=== PATIENT | male | born 1960 | race Hispanic/Latino ===

== ENCOUNTER 2017-01-15 08:48 | Emergency (ER) | payer OTHER ==
[2017-01-15 08:48] VITALS: BMI 28.5
[2017-01-15 08:57] VITALS: TEMP 97.3
--- NOTE | 2017-01-15 09:17 | C.PDOC ---
History Of Present Illness 56 yo male, c/o of right shoulder and right neck pain s/p trip and fall 3 days ago. no head injury no loc. no other complaints Time Seen by Provider: 01/15/17 09:08 Chief Complaint (Nursing): Upper Extremity Problem/Injury Past Medical History Reviewed: Historical Data, Nursing Documentation, Vital Signs Vital Signs: Last Vital Signs Temp 97.3 F L 01/15/17 08:54 Pulse 71 01/15/17 09:42 Resp 18 01/15/17 09:42 BP 132/75 01/15/17 09:42 Pulse Ox 97 01/15/17 09:42 - Medical History PMH: Depression, Gastritis, Hiatal Hernia, Hyperlipidemia, Post Traumatic Stress Disorder Denies: Diabetes, Hepatitis, HIV, HTN, Seizures, Sexually Transmitted Disease Family History: States: Unknown Family Hx, [place], CAD, Diabetes - Social History Hx Alcohol Use: No Hx Substance Use: No - Immunization History Hx Tetanus Toxoid Vaccination: No Hx Influenza Vaccination: No Hx Pneumococcal Vaccination: No Review Of Systems Except As Marked, All Systems Reviewed And Found Negative. Musculoskeletal: Positive for: Neck Pain, Shoulder Pain (right) Physical Exam - Physical Exam Appears: Well, No Acute Distress, Other (sleeping in nad) Skin: Normal Color, Warm, Dry Eye(s): bilateral: Normal Inspection, PERRL, EOMI Nose: Normal Throat: Normal Neck: Normal, Normal ROM, No Decreased ROM, No Midline Cervical Tenderness, Paracervical Tenderness, Supple Cardiovascular: Rhythm Regular Respiratory: Normal Breath Sounds Gastrointestinal/Abdominal: Normal Exam Back: Normal Inspection Extremity: Normal ROM, Tenderness (mild right), No Deformity, No Swelling ED Course And Treatment O2 Sat by Pulse Oximetry: 98 Medical Decision Making Medical Decision Making: nexus neg pending imagng 100: imaging neg. pt advised outpt fu and return precautions Disposition - Disposition Referrals: [facility] [Outside] [facility] [Outside] Luis Rose MD [Non-Staff] - Disposition: HOME/ ROUTINE Disposition Time: 09:34 Condition: STABLE Additional Instructions: please follow up with your doctor/specialist. return to er with worsening symptoms or concerns. Prescriptions: Naproxen [Naprosyn] 500 mg PO BID PRN #14 tablet PRN Reason: Pain, Mild (1-3) Instructions: Shoulder Sprain (ED), Cervical Sprain (ED) Forms: [facility] (Malagasy) - Clinical Impression Clinical Impression: Shoulder injury, Neck pain
[2017-01-15 09:42] VITALS: BP 132/75; PULSE 71; RESP 18
--- NOTE | 2017-01-15 11:52 | RAD ---
PROCEDURE: Radiographs of the Right Shoulder HISTORY: Trauma COMPARISON: No prior. FINDINGS: BONES: Normal. No fracture. JOINTS: Mild degenerative osteoarthritis right acromioclavicular joint. SOFT TISSUES: Normal. OTHER FINDINGS: None. IMPRESSION: No evidence of acute displaced fracture nor dislocation. Mild DJD right acromioclavicular joint.
[2017-01-15 12:58] VITALS: O2SAT 98
== END 2017-01-15 09:44 | disposition home or self-care (01) ==
LOC: C.ER 08:48
DX: M54.2 Cervicalgia (principal); S49.91XA Unspecified injury of right shoulder and upper arm, initial encounter; W01.0XXA Fall on same level from slipping, tripping and stumbling without subsequent striking against object, initial encounter; Y92.89 Other specified places as the place of occurrence of the external cause

== ENCOUNTER 2017-02-01 16:29 | Inpatient (IN) | payer MEDICAID, OTHER ==
[2017-02-01 16:30] VITALS: BMI 28.5
--- NOTE | 2017-02-01 17:21 | C.PDOC ---
History Of Present Illness 56 y/o male with PMHx of depression presents to ED requesting detox from Heroin and ETOH. Patient admits to drinking ETOH daily and using 10 bags heroin daily, last used yesterday. Patient denies suicidal ideation, fever, chills, nausea, vomiting, abdominal pain or any other complaints at this time. Time Seen by Provider: 02/01/17 16:42 Chief Complaint (Nursing): Substance Abuse History Per: Patient History/Exam Limitations: no limitations Onset/Duration Of Symptoms: Days Current Symptoms Are (Timing): Still Present Suicide/Self Injury Attempted (Context): None Modifying Factor(s): Alcohol Past Medical History Reviewed: Historical Data, Nursing Documentation, Vital Signs Vital Signs: Last Vital Signs Temp 97.3 F L 02/01/17 16:37 Pulse 63 02/01/17 16:37 Resp 20 02/01/17 16:37 BP 135/80 02/01/17 16:37 Pulse Ox 96 02/01/17 17:24 - Medical History PMH: Depression, Gastritis, Hiatal Hernia, Hyperlipidemia, Post Traumatic Stress Disorder Surgical History: No Surg Hx Family History: States: No Known Family Hx, CT, CAD, Diabetes - Social History Hx Alcohol Use: No Hx Substance Use: No - Immunization History Hx Tetanus Toxoid Vaccination: No Hx Influenza Vaccination: No Hx Pneumococcal Vaccination: No Review Of Systems Constitutional: Negative for: Fever, Chills Cardiovascular: Negative for: Chest Pain Respiratory: Negative for: Shortness of Breath Gastrointestinal: Negative for: Nausea, Vomiting Skin: Negative for: Rash Psych: Negative for: Anxiety, Suicidal ideation, Withdrawal Physical Exam - Physical Exam Appears: Non-toxic, No Acute Distress, Other (Poor hygiene) Skin: Normal Color, Warm, Dry, No Rash Head: Atraumatic, Normacephalic Eye(s): bilateral: Normal Inspection Oral Mucosa: Moist Neck: Normal ROM, Supple Cardiovascular: Rhythm Regular Respiratory: Normal Breath Sounds, No Rales, No Rhonchi, No Wheezing Gastrointestinal/Abdominal: Soft, No Tenderness, No Guarding, No Rebound Back: No CVA Tenderness Extremity: Normal ROM, Capillary Refill (<2 seconds) Pulses: Left Radial: Normal, Right Radial: Normal Neurological/Psych: Oriented x3 Gait: Steady ED Course And Treatment - Laboratory Results Result Diagrams: 02/01/17 17:29 02/01/17 17:29 O2 Sat by Pulse Oximetry: 96 (RA) Pulse Ox Interpretation: Normal Medical Decision Making Medical Decision Making: Patient is pre screened for detox. Disposition - Disposition Disposition: HOSPITALIZED Disposition Time: 22:00 Condition: STABLE Forms: [facility] (Uzbek) - Clinical Impression Clinical Impression: Opioid use disorder, severe, in sustained remission, dependence - Scribe Statement The provider has reviewed the documentation as recorded by the Rosaibjakob Fletcher All medical record entries made by the Rosaibjakob were at my direction and personally dictated by me. I have reviewed the chart and agree that the record accurately reflects my personal performance of the history, physical exam, medical decision making, and the department course for this patient. I have also personally directed, reviewed, and agree with the discharge instructions and disposition.
[2017-02-01 17:34] LABS: BASO # 0.1 K/uL (0.0-0.2); BASO % 1.1 % (0.0-2.0); EOS # 0.2 K/uL (0.0-0.7); EOS % 2.3 % (0.0-4.0); HEMATOCRIT 38.2 % (35.0-51.0); LYMPH # 1.3 K/uL (1.0-4.3); LYMPH % 17.4 % (20.0-40.0); MEAN CELL VOLUME 84.7 fL (80.0-94.0); MEAN CORPUSCULAR HEMOGLOBIN 27.3 pg (27.0-31.0); MEAN CORPUSCULAR HGB CONC 32.2 g/dL (33.0-37.0); MEAN PLATELET VOLUME 6.7 fL (7.2-11.7); MONO # 0.4 K/uL (0.0-0.8); RED CELL DISTRIBUTION WIDTH 16.3 % (11.5-14.5); WHITE BLOOD COUNT 7.7 K/uL (4.8-10.8)
[2017-02-01 17:45] LABS: ALCOHOL SERUM < 10 mg/dl (0-10); ALKALINE PHOSPHATASE 73 U/L (38-126); ALT/SGPT 39 U/L (21-72); AST/SGOT 21 U/L (17-59); BILIRUBIN,TOTAL 0.5 mg/dL (0.2-1.3); BLOOD UREA NITROGEN 7 mg/dL (9-20); CALCIUM 8.1 mg/dl (8.6-10.4); CARBON DIOXIDE 33 mmol/L (22-30); CHLORIDE 102 mmol/L (98-107); GFR AFRICAN-AMERICAN > 60; GLUCOSE,RANDOM 117 mg/dL (75-110); POTASSIUM 3.8 mmol/L (3.6-5.2); SODIUM 138 mmol/L (132-148); TOTAL PROTEIN 7.6 g/dL (6.3-8.3)
--- NOTE | 2017-02-01 18:28 | RAD ---
HISTORY: Detox/Psy COMPARISON: None available. TECHNIQUE: Chest, one view. FINDINGS: LUNGS: No focal consolidation. Please note that chest x-ray has limited sensitivity for the detection of pulmonary masses. PLEURA: No significant pleural effusion identified. No definite pneumothorax . CARDIOVASCULAR: The cardiomediastinal silhouette appears within normal limits of size. OSSEOUS STRUCTURES: Degenerative changes of the spine. VISUALIZED UPPER ABDOMEN: Unremarkable. OTHER FINDINGS: None. IMPRESSION: No focal consolidation, significant pleural effusion, or definite pneumothorax identified.
[2017-02-01 18:48] LABS: RBC URINE 244 /hpf (0-3); URINE BILIRUBIN NEGATIVE (NEGATIVE); URINE BLOOD 2+ (NEGATIVE); URINE COLOR Yellow (YELLOW); URINE GLUCOSE (UA) NORMAL (Normal); URINE KETONE NEGATIVE (NEGATIVE); URINE LEUKOCYTE ESTERASE NEG Leu/uL (Negative); URINE PROTEIN NEGATIVE (NEGATIVE)
--- NOTE | 2017-02-01 22:20 | PCM.BM ---
<Martha De Santiago - Last Filed: 02/01/17 22:18> Treatment Plan Problems - Problems identified on initial assessmt POTIENTIAL FOR AUTONOMIC INSTABILITY RELATED TO ALCOHOL WITHDRAWAL Date Initiated: 02/01/17 Time Initiated: 22:19 Assessment reference: NA Status: Active POTIENTIAL FOR OPIATE WITHDRAWAL Date Initiated: 02/01/17 Time Initiated: 22:19 Assessment reference: NA Status: Active Treatment assets and liabiliti Patient Assests: ADL independent Patient Liabilities: substance abuse, medical problems - Milieu Protocol Maintain good personal hygiene: daily Encourage regular showers, daily Remind patient to perform daily oral care, daily Assist patient to perform ADL's Maintain personal safety: every shift Educate patient to report safety concerns to staff, every shift Monitor environment for contraband/sharps Medication safety: Monitor for expected outcome, potential side effects: every shift, Assess barriers to learning: every shift, Assess readiness for medication education: every shift <Pam Borja - Last Filed: 02/02/17 14:59> Family Contact Family involvement: No known Family/SO - Goals for Treatment Patient goals for treatment: Complete detox and apply to [facility] or return to [facility]. Discharge/Continuing Care - Education Needs Education Needs: Patient Medication, Patient Diagnosis/Disease Process, Patient Coping Skills, Patient Anger Management skills, Patient Placement options, Patient Community resources - Discharge Discharge Criteria: No longer exhibiting s/s of withdrawal, Reduction of target symptoms Discharge to:: Substance Abuse Rehab - Treatment Team Participation Patient/Family/SO Statement: 02/02/17 15:00 "If I can't get into the [facility], i wanna go back to the [facility]. " Discussed with Family/SO: No Was Patient/Family/SO present at Treatment Team Meeting: Yes <Kandi Trammell - Last Filed: 02/04/17 18:02> - Diagnosis (1) Opioid use disorder, severe, dependence Status: Acute Interventions: 02/04/17 18:01 * Assess 7x/week regarding severity of withdrawal * Educate regarding risks, benefits, side effects and alternatives of medications * Use Motivational Interviewing for abstinence * Use CBT for relapse prevention * Medication management for withdrawal symptoms * Encourage medication assisted treatment *
[2017-02-01] MEDS ORDERED: Aluminum Hydroxide/Magnesium Hydroxide Susp (30 mL) PO PRN (23:30)
--- NOTE | 2017-02-02 12:37 | PCM.PSYCH ---
Initial Psychiatric Evaluation - Initial Psychiatric Evaluation Type of Admission: Voluntary Legal Status: Capacity Chief Complaint (in patient's own words): "Not feeling well" History of Present Illness and Precipitating Events: The patient is seen, chart reviewed and case discussed. This is a 56-year-old male, single with no child, unemployed but on welfare, lives in [facility]. The patient is here for heroin and alcohol detox. He is currently in mild withdrawal, especially heroin. He uses 8-10 bags intranasal heroin for many years. Alcohol is 2 pints liquor every day also many years. Despite length of use this is his first detox and he has never been to rehabilitation. He also smokes 1 pack per day cigarettes but denies others. He feels depressed and he has some anxiety. Past psych history: He had 14 admissions to psychiatry for depression, suicidality, PTSD. Currently he denies suicidal ideation and no manic or psychotic symptoms elicited. Family psych history: No drug use but his siblings are also depressed. Medical history: He had full hernia. He also looks older than stated age and slightly emaciated. He admits to losing weight. Current Medications: Active Medications Generic Name Dose Route Start Last Admin Trade Name Freq PRN Reason Stop Dose Admin Al Hydrox/Mg Hydrox/Simethicone 30 ml 02/01/17 23:30 Maalox 30 Ml PO TID PRN Indigestion / Heartburn Chlordiazepoxide 25 mg 02/02/17 18:00 Librium PO 02/06/17 17:59 Q6 DUARTE Taper Chlordiazepoxide 25 mg 02/02/17 12:30 Librium PO Q4H PRN Alcohol Withdrawal Clonidine HCl 0.1 mg 02/01/17 23:15 Catapres PO Q8 PRN COWS Score More or Equal to 5 Folic Acid 1 mg 02/02/17 12:30 Folic Acid PO DAILY DUARTE Hydroxyzine HCl 50 mg 02/01/17 23:53 Atarax PO Q6H PRN Anxiety Loperamide HCl 2 mg 02/01/17 23:30 Imodium PO Q8 PRN Diarrhea Mirtazapine 15 mg 02/02/17 22:00 Remeron PO HS DUARTE Multivitamins 1 tab 02/02/17 12:30 Hexavitamin PO DAILY DUARTE Ondansetron HCl 4 mg 02/01/17 23:30 Zofran Tab PO Q8 PRN Nausea/Vomiting Thiamine HCl 100 mg 02/02/17 12:30 Vitamin B1 Tab PO DAILY DUARTE Trazodone HCl 50 mg 02/02/17 12:30 Desyrel PO HS PRN Insomnia Past Psychiatric History - Past Psychiatric History Previous Treatment History: Inpatient Pertinent Medical Hx (Current Medical&Sleep Prob, Allergies): Allergies Allergy/AdvReac Type Severity Reaction Status Date / Time No Known Allergies Allergy Verified 02/01/17 16:39 No Known Home Med 02/01/17 Review of Systems - Neurological Neurological: Tremor - Psychiatric Psychiatric: Abnormal Sleep Pattern, Anhedonia, Anxiety, Behavioral Changes, Change in Appetite, Depression, Difficulty Concentrating, Irritability. absent : Hallucinations, Homicidal Ideation, Suicidal Ideation Mental Status Examination - Personal Presentation Personal Presentation: Looks older than stated age (looks much older, slightly emaciated, unkempt) - Affect Affect: Constricted - Motor Activity Motor Activity: Calm - Reliability in Providing Information Reliability in Providing Information: Good - Speech Speech: Organized - Mood Mood: Anxious - Formal Thought Process Formal Thought Process: No Impairment - Cognitive Functions Orientation: Person, Place, Situation, Time Sensorium: Alert Attention/Concentration: Attentive Abstract Thinking: Spiro Estimate of Intelligence: Average Judgement: Intact, as evidence by: Insight regarding need for hospitalization Memory: Recent intact, as evidence by: Ability to recall events of the day, Remote intact, as evidenced by: Abilit to recall sig. life events - Risk Risk: Withdrawal, Diminished functioning - Strength & Assets Inventory Strength & Assets Inventory: Cooperative - Limitations Limitations: Living alone DSM 5 DX - DSM 5 DSM 5 Diagnosis: Opioid withdrawal Opioid use disorder, severe Gardiner alcohol use disorder, severe Alcohol withdrawal Maurizio. depressive disorder recurrent, mild PTSD Tobacco use disorder, severe - Recommended/Plan of Treatment Treatment Recommendations and Plan of Treatment: Subutex detox Librium detox Remeron for depression and appetite Diet supplements Gabapentin if needed As needed medications Attend groups and activities Supportive therapy and psychoeducation [place] for abstinence CBT for relapse prevention Encourage MAT Refer to rehab or IOP, and self-help groups Smoking cessation with [place] Nicotine patch 34 min Projected ELOS: 5 days Prognosis: Good with treatment - Smoking Cessation Smoking Cessation Initiated: Yes
[2017-02-02] MEDS: Multiple Vitamins Tab PO SCH (12:52)
[2017-02-02] MEDS ORDERED: Buprenorphine Hydrochloride 2 mg SL ONE ×2 (14:09→15:30)
[2017-02-03] MEDS: Buprenorphine Hydrochloride 2 mg SL SCH (10:00)
[2017-02-03] MEDS: Multiple Vitamins Tab PO SCH (10:00)
--- NOTE | 2017-02-03 14:24 | PCM.PYCHPN ---
Psychiatric Progress Note - Psychiatric Progress Note Patient seen today, length of contact: 15 minutes Patient Chief Complaint: I am feeling better. I still have sleeping problem. Problems Identified/Issues Discussed: Patient seen, chart reviewed, case discussed with the staff. Issues related to illness and treatment were discussed with the patient. Reported compliant with treatment with no adverse effects. Tolerating treatment very well. Reported feeling much better with the treatment. Next Aftercare discussed with the patient. Denied any delusions, auditory or visual hallucinations, suicidal ideations or homicidal ideations at the time of evaluation. Medical Problems: None reported Diagnostic Results: Reviewed DSM 5 Symptoms Update: Improving with treatment Medication Change: Yes (Dose of trazodone increased to 100 mg at bedtime) Medical Record Reviewed: Yes Mental Status Examination - Cognitive Function Orientation: Person, Place, Situation, Time Memory: Intact Attention: WNL Concentration: WNL Association: WN Fund of Knowledge: [facility] Decription of patient's judgement and insights: Fair - Mood Mood: Anxious - Affect Affect: Other (Appropriate) - Speech Speech: Appropriate - Formal Thought Process Formal Thought Process: No Impairment Psychotic Thoughts and Behaviors: None - Suicidal Ideation Suicidal Ideation: No - Homicidal Ideation Homicidal Ideation: No Goal/Treatment Plan - Goal/Treatment Plan Need for Continued Stay: Remain at risks for inpatient hospitalization, Discharge may exacerbated symptoms, Severe functional impairment Progress Toward Problem(s) and Goals/Treatment Plan: Improving. Patient education. Supportive therapy. Continue treatment as before. Patient wants to go to [facility] after discharge from the hospital for follow-up care. Estimated Date of D/C: 02/06/17 - Smoking Cessation Smoking Cessation Initiated: No
--- NOTE | 2017-02-04 09:41 | CARD ---
APPROVED REPORT EKG Measurement Heart [id number] <Conclusion> Normal sinus rhythm Normal ECG
[2017-02-04] MEDS: Buprenorphine Hydrochloride 2 mg SL SCH (10:10)
[2017-02-04] MEDS: Multiple Vitamins Tab PO SCH (10:26)
--- NOTE | 2017-02-04 15:05 | PCM.PYCHPN ---
Psychiatric Progress Note - Psychiatric Progress Note Patient seen today, length of contact: 15 minutes Patient Chief Complaint: "I have cramps and rest leg at night " Problems Identified/Issues Discussed: The pt is seen, chart reviewed, case discussed with staff. The pt is compliant with medications and reports no side-effects. He reported that he had legs cramps and restleg last night. He has had no other new symptoms. Symptoms are improving but needs more time to stabilize. After care discussed, support and psychoeducation given Medication Change: Yes (Dose of trazodone increased to 100 mg at bedtime) Mental Status Examination - Cognitive Function Orientation: Person, Place, Situation, Time Memory: Intact Attention: WNL Concentration: WNL Association: WN Fund of Knowledge: [facility] Decription of patient's judgement and insights: fair/fair - Mood Mood: Anxious - Affect Affect: Constricted - Speech Speech: Appropriate - Formal Thought Process Formal Thought Process: No Impairment Psychotic Thoughts and Behaviors: denied - Suicidal Ideation Suicidal Ideation: No - Homicidal Ideation Homicidal Ideation: No Goal/Treatment Plan - Goal/Treatment Plan Need for Continued Stay: Discharge may exacerbated symptoms Progress Toward Problem(s) and Goals/Treatment Plan: Subutex detox Librium detox Remeron for depression and appetite Diet supplements Gabapentin if needed As needed medications Attend groups and activities Supportive therapy and psychoeducation [place] for abstinence CBT for relapse prevention Encourage MAT Refer to rehab or IOP, and self-help groups Smoking cessation with [place] Nicotine patch Estimated Date of D/C: 02/06/17
[2017-02-05] MEDS: Multiple Vitamins Tab PO SCH (10:24)
[2017-02-05] MEDS: Buprenorphine Hydrochloride 2 mg SL SCH (10:24)
[2017-02-05] MEDS: Ammonium Lactate 12% Lotion (225 g) EXT SCH ×2 (11:03→17:13)
--- NOTE | 2017-02-05 11:47 | PCM.PYCHPN ---
Psychiatric Progress Note - Psychiatric Progress Note Patient seen today, length of contact: 15 minutes Patient Chief Complaint: "I still don't feel well" Problems Identified/Issues Discussed: The pt is seen, chart reviewed, case discussed with staff. The pt is compliant with medications and reports no side-effects. Symptoms are improving but needs more time to stabilize. After care discussed, support and psychoeducation given. He still has insomnia and some wdw Medication Change: Yes (detox changes daily, add seroquel) Medical Record Reviewed: Yes Mental Status Examination - Cognitive Function Orientation: Person, Place, Situation, Time Memory: Intact Attention: WNL Concentration: WNL Association: [facility] Fund of Knowledge: WNL - Mood Mood: Anxious - Affect Affect: Other (Appropriate) - Speech Speech: Appropriate - Formal Thought Process Formal Thought Process: No Impairment - Suicidal Ideation Suicidal Ideation: No - Homicidal Ideation Homicidal Ideation: No Goal/Treatment Plan - Goal/Treatment Plan Need for Continued Stay: Discharge may exacerbated symptoms, Severe functional impairment Progress Toward Problem(s) and Goals/Treatment Plan: Subutex detox Librium detox Remeron for depression and appetite Diet supplements Gabapentin if needed As needed medications Attend groups and activities Supportive therapy and psychoeducation [place] for abstinence CBT for relapse prevention Encourage MAT Refer to rehab or IOP, and self-help groups Smoking cessation with [place] Nicotine patch Estimated Date of D/C: 02/06/17
[2017-02-06] MEDS: Multiple Vitamins Tab PO SCH (09:28)
[2017-02-06] MEDS: Buprenorphine Hydrochloride 2 mg SL SCH (09:28)
[2017-02-06] MEDS: Ammonium Lactate 12% Lotion (225 g) EXT SCH ×2 (09:29→18:28)
--- NOTE | 2017-02-06 15:50 | PCM.PYCHPN ---
Psychiatric Progress Note - Psychiatric Progress Note Patient seen today, length of contact: 15 minutes Patient Chief Complaint: " I am doing okay" Problems Identified/Issues Discussed: The pt is seen, chart reviewed, case discussed with staff. The pt is compliant with medications and reports no side-effects. Symptoms are improving but needs more time to stabilize. Patient still complains of some insomnia, however, patient sleeps a lot during the day After care discussed, support and psychoeducation given. Patient states that he plans to [facility] Medication Change: Yes (detox changes daily) Medical Record Reviewed: Yes Mental Status Examination - Cognitive Function Orientation: Person, Place, Situation, Time Memory: Intact Attention: WNL Concentration: WNL Association: WNL Fund of Knowledge: WNL - Mood Mood: Anxious - Affect Affect: Other (Appropriate) - Speech Speech: Appropriate - Formal Thought Process Formal Thought Process: No Impairment - Suicidal Ideation Suicidal Ideation: No - Homicidal Ideation Homicidal Ideation: No Goal/Treatment Plan - Goal/Treatment Plan Need for Continued Stay: Discharge may exacerbated symptoms, Severe functional impairment Progress Toward Problem(s) and Goals/Treatment Plan: Subutex detox Librium detox Remeron for depression and appetite Diet supplements Gabapentin if needed As needed medications Attend groups and activities Supportive therapy and psychoeducation [place] for abstinence CBT for relapse prevention Encourage MAT Refer to rehab or IOP, and self-help groups Smoking cessation with [place] Estimated Date of D/C: 02/06/17
[2017-02-06 16:48] VITALS: RESP 18
[2017-02-07] MEDS: Multiple Vitamins Tab PO SCH (09:24)
[2017-02-07] MEDS: Ammonium Lactate 12% Lotion (225 g) EXT SCH (09:26)
[2017-02-07] MEDS ORDERED: Buprenorphine Hydrochloride 2 mg SL ONE (10:00)
[2017-02-07 10:30] VITALS: BP 118/79; PULSE 79; TEMP 97.6; O2SAT 100
--- NOTE | 2017-02-07 13:44 | PCM.PYCHDC ---
Mental Status Examination - Mental Status Examination Orientation: Person, Place, Situation, Time Memory: Intact Mood: Anxious Affect: Depressed Speech: Appropriate Attention: WNL Concentration: WNL Formal Thought Process: No Impairment Suicidal Ideation: No Current Homicidal Ideation?: No Discharge Summary - Discharge Note Reason for Hospitalization: Heroin and Alcohol detox Psychiatric History (includes Medical, Family, Personal Hx): 14 admissions to psychiatry for depression, suicidality, PTSD. Consultations:: List each consultation separately and include: 1. Reason for request. 2. Findings. 3. Follow-up Summary of Hospital Course include:: 1. Description of specific treatment plan utilized for patients during their course of treatmen. 2. Summarize the time- course for resolution of acute symptoms and/or regressed behaviors. 3. Describe issues identified and worked on during hospitalization. 4. Describe medication utilized. 5. Describe medical problems identified and treated. 6. Reassessment of suicide risk Summary of Hospital Course: The pt was admitted and started on treatment with psychotherapy, support, psychoeducation and medications. [place] and CBT used. The pt attended groups and activities, as well as milieu therapy. All the risks and benefits of medications are discussed and the patient understood and agreed. The pt improved with the treatments provided. After care discussed with the patient, she is [facility] - Final Diagnosis (DSM 5) Condition upon Discharge: STABLE Disposition: HOME/ ROUTINE Follow-up Treatment Plan: Continue below medications after discharge. Follow after care plan as discussed. Use relapse prevention skills Return to ER or call 911 if suicidal, homicidal or symptoms relapse. Stay away from stress, alcohol and drugs. See primary doctor regularly and get labs. Patient will be going to [facility] and AA meetings. Patient was also refer to [facility] step Prescriptions/Medication Reconciliation: Gabapentin [Neurontin] 100 mg PO TID #90 cap Mirtazapine [Remeron] 15 mg PO HS #30 tab Multivitamins [Hexavitamin] 1 tab PO DAILY #30 tab QUEtiapine [Seroquel] 100 mg PO HS #30 tab - Smoking Cessation Smoking Cessation Medication prescribed: No
== END 2017-02-07 13:55 | disposition home or self-care (01) | DRG 744 ==
LOC: C.ER 16:29 → C.7D 21:45
PROVIDERS: ADMIT Psychiatry & Neurology Psychiatry; ATTEND Psychiatry & Neurology Psychiatry
PROC: HZ52ZZZ Individual Psychotherapy for Substance Abuse Treatment, Cognitive-Behavioral (ICD-10-PCS; principal; 2017-02-01)
PROC: HZ2ZZZZ Detoxification Services for Substance Abuse Treatment (ICD-10-PCS; 2017-02-01)
PROC: HZ59ZZZ Individual Psychotherapy for Substance Abuse Treatment, Supportive (ICD-10-PCS; 2017-02-01)
PROC: HZ56ZZZ Individual Psychotherapy for Substance Abuse Treatment, Psychoeducation (ICD-10-PCS; 2017-02-01)
PROC: HZ57ZZZ Individual Psychotherapy for Substance Abuse Treatment, Motivational Enhancement (ICD-10-PCS; 2017-02-01)
DX: F11.23 Opioid dependence with withdrawal (principal); R64 Cachexia; F33.0 Major depressive disorder, recurrent, mild; F17.210 Nicotine dependence, cigarettes, uncomplicated; F43.10 Post-traumatic stress disorder, unspecified; G47.00 Insomnia, unspecified; R25.2 Cramp and spasm; F10.230 Alcohol dependence with withdrawal, uncomplicated

== ENCOUNTER 2017-03-12 05:54 | Emergency (ER) | payer MEDICAID, OTHER ==
[2017-03-12 05:56] VITALS: BMI 22.1
[2017-03-12 06:10] VITALS: BP 151/76; PULSE 82; RESP 18; TEMP 99.1; O2SAT 99
[2017-03-12] MEDS ORDERED: Naproxen 550 mg Tab PO STA (06:19)
--- NOTE | 2017-03-12 06:24 | C.PDOC ---
History Of Present Illness [facility], is c/o left upper back/shoulder pain and numbness/ tingling of left arm. He states he fell overnight, landing onto upper back and symptoms have been worse since then. He denies head injury or LOC. Patient discharged from [facility] on 03/09/16 (admitted for syncope), had negative stroke work up. Patient admits current numbness/tingling of arm is the same that he had during recent admission. Time Seen by Provider: 03/12/17 05:58 Chief Complaint (Nursing): Dizziness/Lightheaded History Per: Patient, EMS History/Exam Limitations: no limitations Onset/Duration Of Symptoms: Hrs Current Symptoms Are (Timing): Still Present Fall Associated With With Symptoms: Yes Severity: Mild Past Medical History Reviewed: Historical Data, Nursing Documentation, Vital Signs Vital Signs: Last Vital Signs Temp 99.1 F 03/12/17 06:04 Pulse 82 03/12/17 06:04 Resp 18 03/12/17 06:04 BP 151/76 H 03/12/17 06:04 Pulse Ox 99 03/12/17 06:49 - Medical History PMH: Anxiety, Depression, Gastritis, Hiatal Hernia, Hypercholesterolemia, Hyperlipidemia, Post Traumatic Stress Disorder - [facility] Procedures DETOXIFICATION SERVICES FOR SUBSTANCE ABUSE TREATMENT (02/01/17) GROUP PSYCHOTHERAPY (02/15/17) INDIV PSYCHOTHERAPY FOR SUBSTANCE ABUSE TREATMENT, SUPPORT (02/01/17) INDIV PSYCHOTHERAPY FOR SUBSTANCE ABUSE, COGNITIV BEHAVIORAL (02/01/17) INDIV PSYCHOTHERAPY FOR SUBSTANCE ABUSE, MOTIVATION ENHANCE (02/15/17) INDIV PSYCHOTHERAPY FOR SUBSTANCE ABUSE, PSYCHOEDUCATION (02/15/17) Family History: States: [place], CAD, Diabetes - Social History Hx Alcohol Use: No Hx Substance Use: Yes (HEROIN LAST USE 03/10/17) - Immunization History Hx Tetanus Toxoid Vaccination: No Hx Influenza Vaccination: No Hx Pneumococcal Vaccination: No Review Of Systems Except As Marked, All Systems Reviewed And Found Negative. Cardiovascular: Negative for: Chest Pain, Palpitations Respiratory: Negative for: Cough, Shortness of Breath Gastrointestinal: Negative for: Nausea, Vomiting, Abdominal Pain, Diarrhea Musculoskeletal: Positive for: Other (left shoulder/upper back pain) Neurological: Positive for: Weakness (parathesias left arm) Physical Exam - Physical Exam Appears: Well, Non-toxic, No Acute Distress, Unkempt Skin: Normal Color, Warm, Dry, No Rash Head: Atraumatic, Normacephalic Eye(s): bilateral: Normal Inspection Oral Mucosa: Moist Neck: Normal, Normal ROM Cardiovascular: Rhythm Regular Respiratory: Normal Breath Sounds, No Rales, No Rhonchi, No Wheezing Extremity: Normal ROM, Tenderness (left posterior shoulder and upper thoracic TTP), No Swelling Extremity: Bilateral: Normal Color And Temperature, Normal ROM ((+) worsening of pain with movement of left shoulder) Pulses: Left Radial: Normal, Right Radial: Normal Neurological/Psych: Oriented x3, Normal Sensation (decreased sensation left arm) ED Course And Treatment O2 Sat by Pulse Oximetry: 99 Progress Note: Xrays of left shoulder and CXR ordered and reviewed. 6:50pm - Patient resting comfortably on stretcher. Xrays (-) for fracture/dislocation. When I explained to patient he will be discharged with Rxs, patient states he does not feel well and now he wants to kill himself. Patient did not mention any such symptoms to EMS, triage, his nurse or myself prior to now. I suspect he is being manipulative and exhibiting bed seeking behavior. Security called to escort patient out of ED. Disposition Counseled Patient/Family Regarding: Studies Performed, Diagnosis, Need For Followup, Rx Given - Disposition Referrals: [facility] at [facility] [Outside] Disposition: HOME/ ROUTINE Disposition Time: 06:50 Condition: STABLE Additional Instructions: FOLLOW UP WITH YOUR DOCTOR/CLINIC IN 1-2 DAYS USE MEDICATIONS NEEDED FOR PAIN RETURN TO ER IF SYMPTOMS WORSEN Prescriptions: Cyclobenzaprine [Cyclobenzaprine HCl] 10 mg PO BID PRN #15 tab PRN Reason: Muscle Spasm Naproxen 375 mg PO BID PRN #20 tablet PRN Reason: pain Instructions: Shoulder Sprain (ED), Back Pain (ED) Forms: [employer] (Qatari) Print Language: LAO - POA Present On Arrival: Falls Or Trauma - Clinical Impression Clinical Impression: Arm paresthesia, left, Left-sided thoracic back pain, Sprain of left shoulder
[2017-03-12] MEDS ORDERED: Naproxen 550 mg Tab PO ONE (06:30)
--- NOTE | 2017-03-12 09:19 | RAD ---
PROCEDURE: Radiographs of the Left Shoulder HISTORY: left shoulder pain COMPARISON: No prior. FINDINGS: BONES: Normal. No fracture. JOINTS: Normal glenohumeral articulation. Mild acromioclavicular degenerative arthritis. SOFT TISSUES: Normal. OTHER FINDINGS: None. IMPRESSION: No acute fracture. Acromioclavicular degenerative arthritis.
--- NOTE | 2017-03-12 10:15 | RAD ---
Chest x-ray two views History: Upper back pain. Comparison: 02/01/2017 Findings: Hyperinflation suggestive for COPD and or emphysematous changes. Bibasilar nodular densities may represent bibasilar nipple shadows versus confluence of shadows with ribs and vessels. No gross focal infiltrate or effusion. Heart size within normal limits. Degenerative changes in the spine. Impression: Diffuse increased interstitial lung markings which may represent mild edema and venous congestion. Bibasilar nodular densities may represent bibasilar nipple shadows versus confluence of shadows with ribs and vessels.
== END 2017-03-12 06:54 | disposition home or self-care (01) ==
LOC: C.ER 05:54
DX: R20.2 Paresthesia of skin (principal); M54.6 Pain in thoracic spine; S43.402A Unspecified sprain of left shoulder joint, initial encounter; W18.30XA Fall on same level, unspecified, initial encounter; Y92.9 Unspecified place or not applicable

== ENCOUNTER 2017-03-12 16:29 | Emergency (ER) | payer OTHER ==
[2017-03-12 16:29] VITALS: BMI 22.1
[2017-03-12 17:12] VITALS: RESP 18
[2017-03-12 20:10] VITALS: BP 140/77; PULSE 72; TEMP 97.7; O2SAT 100
== END 2017-03-12 20:14 | disposition left against medical advice (07) ==
LOC: C.ER 16:29
DX: Z02.89 Encounter for other administrative examinations (principal); F19.10 Other psychoactive substance abuse, uncomplicated

== ENCOUNTER 2017-03-12 23:22 | Emergency (ER) | payer OTHER ==
[2017-03-12 23:23] VITALS: BMI 22.1
[2017-03-12 23:59] VITALS: PULSE 82; RESP 20
--- NOTE | 2017-03-13 06:01 | C.PDOC ---
History Of Present Illness 56 year old male presents to ER requesting heroin detox, c/o of intermittent diarrhea. Patient denies vomiting, abdominal pain, palpitations, suicidal/ homicidal ideations. Patient was seen and discharged home yesterday for left arm numbness. Time Seen by Provider: 03/13/17 05:26 Chief Complaint (Nursing): Substance Abuse History Per: Patient History/Exam Limitations: no limitations Modifying Factor(s): Other (heroin) Associated Symptoms: denies: Agitation, Suicidal Thoughts Past Medical History Reviewed: Historical Data, Nursing Documentation, Vital Signs Vital Signs: Last Vital Signs Temp 98 F 03/13/17 06:18 Pulse 82 03/13/17 06:18 Resp 20 03/13/17 06:18 BP 132/72 03/13/17 06:18 Pulse Ox 98 03/13/17 22:46 - Medical History PMH: Anxiety, Depression, Gastritis, Hiatal Hernia, Hypercholesterolemia, Hyperlipidemia, Post Traumatic Stress Disorder - [facility] Procedures DETOXIFICATION SERVICES FOR SUBSTANCE ABUSE TREATMENT (02/01/17) GROUP PSYCHOTHERAPY (02/15/17) INDIV PSYCHOTHERAPY FOR SUBSTANCE ABUSE TREATMENT, SUPPORT (02/01/17) INDIV PSYCHOTHERAPY FOR SUBSTANCE ABUSE, COGNITIV BEHAVIORAL (02/01/17) INDIV PSYCHOTHERAPY FOR SUBSTANCE ABUSE, MOTIVATION ENHANCE (02/15/17) INDIV PSYCHOTHERAPY FOR SUBSTANCE ABUSE, PSYCHOEDUCATION (02/15/17) Family History: States: [place], CAD, Diabetes - Social History Hx Alcohol Use: Yes Hx Substance Use: Yes (HEROIN LAST USE 03/12/17) - Immunization History Hx Tetanus Toxoid Vaccination: No Hx Influenza Vaccination: No Hx Pneumococcal Vaccination: No Review Of Systems Constitutional: Negative for: Fever, Chills Cardiovascular: Negative for: Chest Pain, Palpitations Respiratory: Negative for: Shortness of Breath Gastrointestinal: Positive for: Diarrhea. Negative for: Nausea, Vomiting Physical Exam - Physical Exam Appears: Non-toxic, No Acute Distress Skin: Normal Color, Warm, Dry Head: Atraumatic, Normacephalic Eye(s): bilateral: Normal Inspection Oral Mucosa: Moist Chest: Symmetrical, No Tenderness Cardiovascular: Rhythm Regular Respiratory: Normal Breath Sounds, No Rales, No Rhonchi, No Wheezing Gastrointestinal/Abdominal: Soft, No Tenderness Neurological/Psych: Oriented x3, Normal Speech Gait: Steady ED Course And Treatment O2 Sat by Pulse Oximetry: 98 (room air) Pulse Ox Interpretation: Normal Progress Note: Patient is resting on the stretcher on no acute distress, requesting a sandwich. Explained to patient that there are no detox beds available at this time. As per trailhead maintenance worker Deepa, patient is not eligible for detox as he completed a detox program less than a month ago. Patient will be discharged home with out patient follow up instructions. Disposition - Disposition Referrals: Tg Moreno MD [Staff Provider] - Disposition: HOME/ ROUTINE Disposition Time: 06:03 Condition: STABLE Additional Instructions: Please follow up with PMD or in clinic Pt was given outpatient detox locations Return to ER if worse Instructions: Narcotic Abuse (ED) Forms: [employer] (Botswanan) - Clinical Impression Clinical Impression: Heroin abuse, Drug dependence - PA / AWNING MAKER / Resident Statement MD/DO has reviewed & agrees with the documentation as recorded. - Scribe Statement The provider has reviewed the documentation as recorded by the Scribe Jin Kelly All medical record entries made by the Scribe were at my direction and personally dictated by me. I have reviewed the chart and agree that the record accurately reflects my personal performance of the history, physical exam, medical decision making, and the department course for this patient. I have also personally directed, reviewed, and agree with the discharge instructions and disposition.
[2017-03-13 06:20] VITALS: BP 132/72; TEMP 98
[2017-03-13 22:42] VITALS: O2SAT 98
== END 2017-03-13 06:18 | disposition home or self-care (01) ==
LOC: C.ER 23:22
DX: F11.20 Opioid dependence, uncomplicated (principal)

== ENCOUNTER 2017-05-01 21:38 | Inpatient (IN) | payer MEDICAID, OTHER ==
[2017-05-01 21:38] VITALS: BMI 22.1
--- NOTE | 2017-05-01 22:07 | C.PDOC ---
History Of Present Illness 56 year old male presents to the ED requesting detox for heroin abuse. Patient is currently homeless, during examination is pleasant, cooperative. Patient denies any fever, chills, nausea, vomit, CP, palpitations, SOB, SI/HI, hallucinations. Time Seen by Provider: 05/01/17 22:07 Chief Complaint (Nursing): Substance Abuse History Per: Patient History/Exam Limitations: no limitations Onset/Duration Of Symptoms: Days Current Symptoms Are (Timing): Still Present Suicide/Self Injury Attempted (Context): None Modifying Factor(s): Other (Heroin) Associated Symptoms: denies: Suicidal Thoughts, Suicidal Plan Recent travel outside of the [place]: No Additional History Per: Patient Past Medical History Reviewed: Historical Data, Nursing Documentation, Vital Signs Vital Signs: Last Vital Signs Temp 98.6 F 05/01/17 21:41 Pulse 102 H 05/01/17 21:41 Resp 20 05/01/17 21:41 BP 119/70 05/01/17 21:41 Pulse Ox 95 05/01/17 23:09 - Medical History PMH: Anxiety, Depression, Gastritis, Hiatal Hernia, Hypercholesterolemia, Hyperlipidemia, Post Traumatic Stress Disorder Denies: Diabetes, Hepatitis, HIV, HTN (DENIES), Chronic Kidney Disease, Seizures, Sexually Transmitted Disease Surgical History: No Surg Hx - [facility] Procedures DETOXIFICATION SERVICES FOR SUBSTANCE ABUSE TREATMENT (02/01/17) GROUP PSYCHOTHERAPY (02/15/17) INDIV PSYCHOTHERAPY FOR SUBSTANCE ABUSE TREATMENT, SUPPORT (02/01/17) INDIV PSYCHOTHERAPY FOR SUBSTANCE ABUSE, COGNITIV BEHAVIORAL (02/01/17) INDIV PSYCHOTHERAPY FOR SUBSTANCE ABUSE, MOTIVATION ENHANCE (02/15/17) INDIV PSYCHOTHERAPY FOR SUBSTANCE ABUSE, PSYCHOEDUCATION (02/15/17) Family History: States: [place], CAD, Diabetes - Social History Hx Alcohol Use: No Hx Substance Use: Yes (HEROIN LAST USE 03/12/17) - Immunization History Hx Tetanus Toxoid Vaccination: No Hx Influenza Vaccination: No Hx Pneumococcal Vaccination: No Review Of Systems Constitutional: Negative for: Fever, Chills Cardiovascular: Negative for: Chest Pain, Palpitations Respiratory: Negative for: Cough, Shortness of Breath Gastrointestinal: Negative for: Abdominal Pain Skin: Negative for: Rash Neurological: Negative for: Weakness, Numbness Psych: Negative for: Depression, Suicidal ideation Physical Exam - Physical Exam Appears: Non-toxic, No Acute Distress Skin: Warm, Dry Head: Normacephalic Eye(s): bilateral: Normal Inspection Nose: No Discharge, No Deformity Oral Mucosa: Moist Neck: Supple Chest: Symmetrical Cardiovascular: Rhythm Regular, No Murmur Respiratory: No Rales, Rhonchi (scattered), No Wheezing Gastrointestinal/Abdominal: Soft, No Tenderness, No Guarding, No Rebound Extremity: Normal ROM, No Tenderness, Pedal Edema (trace), No Swelling Neurological/Psych: Oriented x3 Gait: Steady ED Course And Treatment - Laboratory Results Result Diagrams: 05/01/17 22:24 05/01/17 22:24 O2 Sat by Pulse Oximetry: 95 (On RA) Pulse Ox Interpretation: Normal Progress Note: Plan: - Labs. - Crisis evaluation. - CXR. - UA Disposition Discussed With DrTre: Ted Hill Comment: accepted the pt on h is service and took over the care at 1:38AM Doctor Will See Patient In The: Hospital Counseled Patient/Family Regarding: Studies Performed, Diagnosis - Disposition Disposition: HOSPITALIZED Disposition Time: 22:07 Condition: FAIR Forms: [facility] (Iranian) - POA Present On Arrival: Poor Glycemic Control - Clinical Impression Clinical Impression: Opioid use disorder, severe, dependence - Scribe Statement The provider has reviewed the documentation as recorded by the Scribe Luis Miguel Fleming All medical record entries made by the Scribe were at my direction and personally dictated by me. I have reviewed the chart and agree that the record accurately reflects my personal performance of the history, physical exam, medical decision making, and the department course for this patient. I have also personally directed, reviewed, and agree with the discharge instructions and disposition. Decision To Admit - Pt Status Changed To: Hospital Disposition Of: Inpatient - Admit Certification Admit to Inpatient:: After my assessment, the patient will require hospitalization for at least two midnights. This is because of the severity of symptoms shown, intensity of services needed, and/or the medical risk in this patient being treated as an outpatient. - InPatient: Physician Admission Certification: I certify that this patient requires 2 or more midnights of care for the following reason:: After my assessment, the patient will require hospitalization for at least two midnights. This is because of the severity of symptoms shown, intensity of services needed, and/or the medical risk in this patient being treated as an outpatient. - . Bed Request Type: Detox Admitting Physician: Ted Hill Patient Diagnosis: Opioid use disorder, severe, dependence
[2017-05-01 22:38] LABS: BASO # 0.1 K/uL (0.0-0.2); BASO % 0.3 % (0.0-2.0); EOS % 0.1 % (0.0-4.0); HEMOGLOBIN 10.9 g/dL (12.0-18.0); LYMPH # 0.7 K/uL (1.0-4.3); LYMPH % 2.4 % (20.0-40.0); MEAN CELL VOLUME 85.9 fL (80.0-94.0); MEAN CORPUSCULAR HEMOGLOBIN 28.1 pg (27.0-31.0); MEAN CORPUSCULAR HGB CONC 32.7 g/dL (33.0-37.0); MEAN PLATELET VOLUME 6.9 fL (7.2-11.7); MONO # 1.3 K/uL (0.0-0.8); MONO % 4.5 % (0.0-10.0); NEUT # 26.3 K/uL (1.8-7.0); NEUT % 92.7 % (50.0-75.0); PLATELET COUNT 453 K/uL (130-400); RBC 3.88 Mil/uL (4.40-5.90); RED CELL DISTRIBUTION WIDTH 14.3 % (11.5-14.5)
[2017-05-01 22:40] LABS: ALB/GLOB RATIO 1.2 (1.0-2.1); ALT/SGPT 26 U/L (21-72); AST/SGOT 25 U/L (17-59); BLOOD UREA NITROGEN 11 mg/dL (9-20); CALCIUM 8.6 mg/dl (8.6-10.4); GFR AFRICAN-AMERICAN > 60; GFR NON-AFRICAN AMERICAN > 60; WHITE BLOOD COUNT 28.4 K/uL (4.8-10.8)
[2017-05-01 22:57] LABS: BANDS 1 % (0-2); HYPOCHROMIC SLIGHT; LYMPHOCYTE 1 % (20-40); MONOCYTE 5 % (0-10); NEUTROPHIL 93 % (50-75); PLATELET ESTIMATE SLIGHTLY INCREASED (NORMAL); TOTAL CELLS COUNTED 100
[2017-05-01 22:58] LABS: POLYCHROMIC SLIGHT
[2017-05-02 00:43] LABS: SQUAMOUS EPITHIAL < 1 /hpf (0-5); URINE BILIRUBIN NEGATIVE (NEGATIVE); URINE BLOOD NEGATIVE (NEGATIVE); URINE CLARITY Hazy (Clear); URINE COLOR Yellow (YELLOW); URINE GLUCOSE (UA) NORMAL (Normal); URINE LEUKOCYTE ESTERASE NEG Leu/uL (Negative); URINE PROTEIN NEGATIVE (NEGATIVE)
[2017-05-02 00:57] LABS: BARBITURATES, UR NEGATIVE (NEGATIVE); BENZODIAZEPINES, UR NEGATIVE (NEGATIVE); PHENCYCLIDINE, UR NEGATIVE (NEGATIVE)
--- NOTE | 2017-05-02 01:59 | PCM.BM ---
<Prateek Ramírezconnie Lo - Last Filed: 05/02/17 01:58> Treatment Plan Problems - Problems identified on initial assessmt Ineffective Coping Skills Date Initiated: 05/02/17 Time Initiated: 01:58 Assessment reference: NA Status: Active Treatment assets and liabiliti Patient Assests: ADL independent, negotiates basic needs Patient Liabilities: financial problems, poor support system, substance abuse, other - Milieu Protocol Maintain good personal hygiene: daily Encourage regular showers, daily Remind patient to perform daily oral care, other Assist patient to perform ADL's (PRN) Maintain personal safety: every shift Educate patient to report safety concerns to staff, every shift Monitor environment for contraband/sharps Medication safety: Monitor for expected outcome, potential side effects: every shift, Assess barriers to learning: every shift, Assess readiness for medication education: every shift <Kandi Trammell - Last Filed: 05/02/17 11:26> - Diagnosis (1) Opioid use disorder, severe, dependence Status: Acute Interventions: 05/02/17 11:26 * Assess 7x/week regarding severity of withdrawal * Educate regarding risks, benefits, side effects and alternatives of medications * Use Motivational Interviewing for abstinence * Use CBT for relapse prevention * Medication management for withdrawal symptoms * Encourage medication assisted treatment * <Pam Borja - Last Filed: 05/02/17 13:49> Family Contact Family involvement: No known Family/SO - Goals for Treatment Patient goals for treatment: Complete detox and apply for rehab. Discharge/Continuing Care - Education Needs Education Needs: Patient Medication, Patient Diagnosis/Disease Process, Patient Coping Skills, Patient Anger Management skills, Patient Placement options, Patient Community resources, Patient Personal Hygiene/Grooming - Discharge Discharge Criteria: Ability to care for self, No longer exhibiting s/s of withdrawal, Reduction of target symptoms Discharge to:: Substance Abuse Rehab - Additional Comments 05/02/17 13:49 Pending acceptance for inpatient treatment. - Treatment Team Participation Discussed with Family/SO: No Was Patient/Family/SO present at Treatment Team Meeting: Yes
[2017-05-02 02:15] LABS: OPIATES, UR POSITIVE (NEGATIVE)
[2017-05-02] MEDS ORDERED: Aluminum Hydroxide/Magnesium Hydroxide Susp (30 mL) PO PRN (06:32)
--- NOTE | 2017-05-02 06:58 | RAD ---
PROCEDURE: CHEST RADIOGRAPH, 1 VIEW HISTORY: cough COMPARISON: Chest radiographs 03/12/2017. FINDINGS: LUNGS: Subtle patchy density is question at the right base with the left lung clear. This may reflect an early infiltrate around the area of atelectasis with right middle or lower lobes inferiorly. Remainder of the right lung field is unremarkable. PLEURA: No pneumothorax or pleural fluid seen. CARDIOVASCULAR: Normal. OSSEOUS STRUCTURES: No significant abnormalities. VISUALIZED UPPER ABDOMEN: Normal. OTHER FINDINGS: None. IMPRESSION: Early infiltrate suspected at the inferior right lung zone with remaining lung rouse clear otherwise bilaterally. Further clinical correlation is recommended.
[2017-05-02] MEDS: Bacitracin 500 Units/gm Oint Foilpak UD TOP SCH ×2 (10:17→14:32)
[2017-05-02 10:59] LABS: BASO # 0.1 K/uL (0.0-0.2); BASO % 0.6 % (0.0-2.0); EOS # 0.2 K/uL (0.0-0.7); EOS % 1.6 % (0.0-4.0); HEMOGLOBIN 9.6 g/dL (12.0-18.0); LYMPH # 1.2 K/uL (1.0-4.3); LYMPH % 9.4 % (20.0-40.0); MEAN CELL VOLUME 85.8 fL (80.0-94.0); MEAN CORPUSCULAR HGB CONC 32.7 g/dL (33.0-37.0); MEAN PLATELET VOLUME 6.7 fL (7.2-11.7); MONO # 0.8 K/uL (0.0-0.8); MONO % 6.5 % (0.0-10.0); NEUT # 10.7 K/uL (1.8-7.0); NEUT % 81.9 % (50.0-75.0); RBC 3.43 Mil/uL (4.40-5.90); RED CELL DISTRIBUTION WIDTH 14.7 % (11.5-14.5)
--- NOTE | 2017-05-02 11:06 | PCM.PSYCH ---
Initial Psychiatric Evaluation - Initial Psychiatric Evaluation Type of Admission: Voluntary Legal Status: Capacity Chief Complaint (in patient's own words): "Heroin" History of Present Illness and Precipitating Events: The patient is seen, chart reviewed and case discussed. He is known from a Jan 2017 detox. This is a 56-year-old male, single with no child, unemployed but on welfare, lives in [place]. The patient is here for heroin detox. He says he stopped alcohol, which was an issues in the near past. He is currently in mild withdrawal from heroin. He uses 30 bags intranasal heroin for many years but the dose increased recently. Alcohol was 2 pints liquor every day also many years. Despite length of use this is his second detox and he has never been to rehabilitation. He was sent to an IOP in [place] but he didn't go. He wants rehab this time. He also smokes 1 pack per day cigarettes but denies others. He feels depressed and he has some anxiety. Past psych history: He had many admissions to psychiatry for depression, suicidality, PTSD. Currently he denies suicidal ideation and no manic or psychotic symptoms elicited. He is less depressed and more like worried about his life situation and escalating use. Family psych history: No drug use but his siblings are also depressed. Medical history: He had full hernia. He also looks older than stated age and slightly emaciated. Current Medications: Active Medications Generic Name Dose Route Start Last Admin Trade Name Freq PRN Reason Stop Dose Admin Al Hydrox/Mg Hydrox/Simethicone 30 ml 05/02/17 06:32 Maalox 30 Ml PO TID PRN Indigestion / Heartburn Bacitracin 1 ea 05/02/17 10:00 05/02/17 10:17 Bacitracin TOP 1 ea TID DUARTE Administration Clonidine HCl 0.1 mg 05/02/17 06:32 Catapres PO Q8 PRN COWS Score More or Equal to 5 Dicyclomine HCl 10 mg 05/02/17 06:33 Bentyl PO Q6 PRN Other Gabapentin 300 mg 05/02/17 10:00 05/02/17 10:16 Neurontin PO 300 mg BID DUARTE Administration Ibuprofen 400 mg 05/02/17 06:34 05/02/17 10:16 Motrin Tab PO 400 mg Q6 PRN Administration Pain, moderate (4-7) Loperamide HCl 2 mg 05/02/17 06:32 Imodium PO Q8 PRN Diarrhea Mirtazapine 15 mg 05/02/17 22:00 Remeron PO HS DUARTE Ondansetron HCl 4 mg 05/02/17 06:32 Zofran Tab PO Q8 PRN Nausea/Vomiting Trazodone HCl 50 mg 05/02/17 22:00 Desyrel PO HS [facility] Past Psychiatric History - Past Psychiatric History Previous Treatment History: Inpatient Pertinent Medical Hx (Current Medical&Sleep Prob, Allergies): Allergies Allergy/AdvReac Type Severity Reaction Status Date / Time No Known Allergies Allergy Verified 03/12/17 06:11 RX: Alprazolam [Xanax] 0.5 mg PO BID 02/15/17 RX: clonazePAM [Klonopin] 0.25 mg PO TID PRN 3 Days #3 tab 02/23/17 RX: Aspirin [Aspirin Chewable] 81 mg PO DAILY 30 Days #30 chew 03/09/17 RX: Famotidine [Pepcid] 20 mg PO BID 30 Days #60 tab 03/09/17 RX: Folic Acid 1 mg PO DAILY 30 Days #30 tab 03/09/17 RX: Gabapentin [Neurontin] 100 mg PO TID #90 cap 03/09/17 RX: Mirtazapine [Remeron] 15 mg PO HS #30 tab 03/09/17 RX: QUEtiapine [SEROquel] 100 mg PO BID 6 Days #12 tab 03/09/17 RX: Thiamine [Vitamin B1 Tab] 100 mg PO DAILY 30 Days #30 tab 03/09/17 RX: Thiamine [Vitamin B1 Tab] 100 mg PO DAILY 30 Days #30 tab 03/09/17 RX: buPROPion SR [Wellbutrin SR 150 MG] 150 mg PO DAILY 30 Days #30 tab Cyclobenzaprine [Cyclobenzaprine HCl] 10 mg PO BID PRN #15 tab 03/12/17 RX: Naproxen 375 mg PO BID PRN #20 tablet 03/12/17 Naproxen [Naprosyn] 500 mg PO BID PRN #14 tablet 03/15/17 Review of Systems - Neurological Neurological: UNREMARKABLE - Psychiatric Psychiatric: Abnormal Sleep Pattern, Anxiety, Depression, Difficulty Concentrating. absent: Hallucinations, Homicidal Ideation, Suicidal Ideation Mental Status Examination - Personal Presentation Personal Presentation: Looks older than stated age - Affect Affect: Constricted - Motor Activity Motor Activity: Calm - Reliability in Providing Information Reliability in Providing Information: Good - Speech Speech: Organized - Mood Mood: Depressed, Anxious - Formal Thought Process Formal Thought Process: No Impairment - Cognitive Functions Orientation: Person, Place, Situation, Time Sensorium: Alert Attention/Concentration: Attentive Abstract Thinking: [place] Estimate of Intelligence: Average Judgement: Intact, as evidence by: Insight regarding need for hospitalization Memory: Recent intact, as evidence by: Ability to recall events of the day, Remote intact, as evidenced by: Abilit to recall sig. life events - Risk Risk: Withdrawal, Diminished functioning - Strength & Assets Inventory Strength & Assets Inventory: Cooperative - Limitations Limitations: Living alone, Other (homeless, unemployed) DSM 5 DX - DSM 5 DSM 5 Diagnosis: Opioid withdrawal Opioid use d/o- severe Alcohol use d/o - severe, in early remission Major depressive d/o - recurrent, mild - Recommended/Plan of Treatment Treatment Recommendations and Plan of Treatment: Start taper with methadone Gabapentin for augmentation Remeron for sleep and depression relapse prevention As needed medications All risks, benefits and alternatives of the meds discussed, and the pt agreed and understood. Attend groups and activities Supportive therapy and psychoeducation NE for abstinence CBT for relapse prevention Encourage MAT Refer to rehab or IOP, and self-help groups Smoking cessation with NE Nicotine patch if needed 34 min Projected ELOS: 5 days Prognosis: good with treatment Discharge Plan and Discharge Criteria: rehab - Smoking Cessation Smoking Cessation Initiated: Yes
[2017-05-02 11:19] LABS: PLATELET COUNT 352 K/uL (130-400); WHITE BLOOD COUNT 13.1 K/uL (4.8-10.8)
[2017-05-02 11:34] LABS: LYMPHOCYTE 6 % (20-40); MONOCYTE 7 % (0-10); NEUTROPHIL 87 % (50-75); TOTAL CELLS COUNTED 100
[2017-05-02 11:35] LABS: HYPOCHROMIC SLIGHT; PLATELET ESTIMATE NORMAL (NORMAL); POLYCHROMIC SLIGHT
--- NOTE | 2017-05-02 13:40 | CP.PCM.CON ---
History of Present Illness - History of Present Illness History of Present Illness: 56 yo male patient with PMHx of Depression, Gastritis, Hiatal Hernia, Hypercholesterolemia, Hyperlipidemia was seen at bedside this afternoon after request for podiatry consultation. Patient presents with painful bilateral feet. The pain started after walking for a few days with wet shoes in cold. He denies of any trauma to bilateral feet. He describes the pain as sharp shooting from plantar aspect of the bilateral feet. He denies of any pain proximal to ankle joint. Pain is generated upon palpation of superficial skin to plantar feet. Patient states that he is admitted for heroin detox. Patient denies of any N/V/F/C or SOB today. Review of Systems - Constitutional Constitutional: As Per HPI Past Patient History - Infectious Disease Hx of Infectious Diseases: None - Past Medical History & Family History Past Medical History?: Yes - Past Social History Smoking Status: Heavy Smoker > 10 Cigarettes Daily - CARDIAC Hx Cardiac Disorders: Yes Hx Hypercholesterolemia: Yes Hx Hypertension: No (DENIES) - PULMONARY Hx Respiratory Disorders: No Hx Asthma: No (Denied) Hx Tuberculosis: No - NEUROLOGICAL Hx Neurological Disorder: No Hx Seizures: No - HEENT Hx HEENT Problems: No - RENAL Hx Chronic Kidney Disease: No - ENDOCRINE/METABOLIC Hx Endocrine Disorders: No - HEMATOLOGICAL/ONCOLOGICAL Hx Blood Disorders: No Hx Human Immunodeficiency Virus (HIV): No - INTEGUMENTARY Hx Dermatological Problems: No - MUSCULOSKELETAL/RHEUMATOLOGICAL Hx Musculoskeletal Disorders: Yes Hx Falls: No (Denied) Hx Herniated Disk: Yes - GASTROINTESTINAL Hx Gastrointestinal Disorders: Yes Hx Gastritis: Yes - GENITOURINARY/GYNECOLOGICAL Hx Genitourinary Disorders: No Hx Sexually Transmitted Disorders: No - PSYCHIATRIC Hx Substance Use: Yes - SURGICAL HISTORY Hx Surgeries: No (Denied) - ANESTHESIA Hx Anesthesia: No Hx Anesthesia Reactions: No Hx Malignant Hyperthermia: No Has any member of the family had a problem w/ anesthesia?: No Meds Allergies/Adverse Reactions: Allergies Allergy/AdvReac Type Severity Reaction Status Date / Time No Known Allergies Allergy Verified 03/12/17 06:11 - Medications Medications: Current Medications Al Hydrox/Mg Hydrox/Simethicone (Maalox 30 Ml) 30 ml PO TID PRN PRN Reason: Indigestion / Heartburn Bacitracin (Bacitracin) 1 ea TOP TID [facility] Last Admin: 05/02/17 10:17 Dose: 1 ea Clonidine HCl (Catapres) 0.1 mg PO Q8 PRN PRN Reason: COWS Score More or Equal to 5 Dicyclomine HCl (Bentyl) 10 mg PO Q6 PRN PRN Reason: Other Gabapentin (Neurontin) 300 mg PO BID [facility] Last Admin: 05/02/17 10:16 Dose: 300 mg Ibuprofen (Motrin Tab) 400 mg PO Q6 PRN PRN Reason: Pain, moderate (4-7) Last Admin: 05/02/17 10:16 Dose: 400 mg Loperamide HCl (Imodium) 2 mg PO Q8 PRN PRN Reason: Diarrhea Mirtazapine (Remeron) 15 mg PO HS [facility] Ondansetron HCl (Zofran Tab) 4 mg PO Q8 PRN PRN Reason: Nausea/Vomiting Trazodone HCl (Desyrel) 50 mg PO HS [facility] Physical Exam - Constitutional Appears: Well, Non-toxic, No Acute Distress - Head Exam Head Exam: ATRAUMATIC - Extremities Exam Additional comments: Bilateral lower extremity exam DERM: No open wound is noted. No drainage is noted. No mal-odor noted. Erythema noted to plantar aspect of bilateral feet especially to digits and heel consistent with resolving immersion foot. VASC: Skin warm to touch. Palpable DP and PT noted bilaterally 1/4. PLASTIC ROLLER less than 3 seconds noted to all digits NEURO: Gross sensation intact ORTHO: Pain on palpation to bilateral feet plantar aspect. Decreased ROM to joints distal to ankle secondary to guarding - Neurological Exam Neurological exam: Alert, Oriented x3 - Psychiatric Exam Psychiatric exam: Normal Affect, Normal Mood Results - Vital Signs Recent Vital Signs: Last Vital Signs Temp 98.7 F 05/02/17 09:00 Pulse 66 05/02/17 09:00 Resp 18 05/02/17 09:00 BP 109/58 L 05/02/17 09:00 Pulse Ox 97 05/02/17 09:00 - Labs Result Diagrams: 05/02/17 10:50 05/01/17 22:24 Labs: Laboratory Results - last 24 hr 05/01/17 05/01/17 05/02/17 22:24 22:24 00:37 WBC 28.4 H D RBC 3.88 L Hgb 10.9 L Hct 33.3 L MCV 85.9 MCH 28.1 MCHC 32.7 L RDW 14.3 Plt Count 453 H MPV 6.9 L Neut % (Auto) 92.7 H Lymph % (Auto) 2.4 L Mcmullen % (Auto) 4.5 Eos % (Auto) 0.1 Baso % (Auto) 0.3 Neut # (Auto) 26.3 H Lymph # (Auto) 0.7 L Mcmullen # (Auto) 1.3 H Eos # (Auto) 0.0 Baso # (Auto) 0.1 Neutrophils % (Manual) 93 H Band Neutrophils % 1 Lymphocytes % (Manual) 1 L Monocytes % (Manual) 5 Platelet Estimate Slightly increased H Polychromasia Slight Hypochromasia (manual) Slight Sodium 133 Potassium 4.7 Chloride 91 L Carbon Dioxide 29 Anion Gap 17 BUN 11 Creatinine 0.8 Est GFR ( Amer) > 60 Est GFR (Non-Af Amer) > 60 Random Glucose 135 H Calcium 8.6 Magnesium Total Bilirubin 0.8 AST 25 ALT 26 Alkaline Phosphatase 76 Total Protein 7.3 Albumin 4.0 Globulin 3.3 Albumin/Globulin Ratio 1.2 25-OH Vitamin D Total TSH 3rd Generation Urine Color Yellow Urine Clarity Hazy Urine pH 6.0 Ur Specific [place] 1.023 Urine Protein Negative Urine Glucose (UA) Normal Urine Ketones Trace Urine Blood Negative Urine Nitrate Negative Urine Bilirubin Negative Urine Urobilinogen 2.0 Ur Leukocyte Esterase Neg Urine WBC (Auto) < 1 Urine RBC (Auto) < 1 Ur Squamous Epith Cells < 1 Urine Opiates Screen Urine Methadone Screen Ur Barbiturates Screen Ur Phencyclidine Scrn Ur Amphetamines Screen U Benzodiazepines Scrn U Oth Cocaine Metabols U Cannabinoids Screen Alcohol, Quantitative < 10 05/02/17 05/02/17 05/02/17 00:37 10:50 10:50 WBC 13.1 H D RBC 3.43 L Hgb 9.6 L Hct 29.4 L MCV 85.8 MCH 28.0 MCHC 32.7 L RDW 14.7 H Plt Count 352 D MPV 6.7 L Neut % (Auto) 81.9 H Lymph % (Auto) 9.4 L Mcmullen % (Auto) 6.5 Eos % (Auto) 1.6 Baso % (Auto) 0.6 Neut # (Auto) 10.7 H Lymph # (Auto) 1.2 Mcmullen # (Auto) 0.8 Eos # (Auto) 0.2 Baso # (Auto) 0.1 Neutrophils % (Manual) 87 H Band Neutrophils % Lymphocytes % (Manual) 6 L Monocytes % (Manual) 7 Platelet Estimate Normal Polychromasia Slight Hypochromasia (manual) Slight Sodium Potassium Chloride Carbon Dioxide Anion Gap BUN Creatinine Est GFR ( Amer) Est GFR (Non-Af Amer) Random Glucose Calcium Magnesium 2.1 Total Bilirubin AST ALT Alkaline Phosphatase Total Protein Albumin Globulin Albumin/Globulin Ratio 25-OH Vitamin D Total TSH 3rd Generation 0.49 Urine Color Urine Clarity Urine pH Ur Specific [place] Urine Protein Urine Glucose (UA) Urine Ketones Urine Blood Urine Nitrate Urine Bilirubin Urine Urobilinogen Ur Leukocyte Esterase Urine WBC (Auto) Urine RBC (Auto) Ur Squamous Epith Cells Urine Opiates Screen Positive H Urine Methadone Screen Negative Ur Barbiturates Screen Negative Ur Phencyclidine Scrn Negative Ur Amphetamines Screen Negative U Benzodiazepines Scrn Negative U Oth Cocaine Metabols Negative U Cannabinoids Screen Negative Alcohol, Quantitative 05/02/17 10:50 WBC RBC Hgb Hct MCV MCH MCHC RDW Plt Count MPV Neut % (Auto) Lymph % (Auto) Mcmullen % (Auto) Eos % (Auto) Baso % (Auto) Neut # (Auto) Lymph # (Auto) Mcmullen # (Auto) Eos # (Auto) Baso # (Auto) Neutrophils % (Manual) Band Neutrophils % Lymphocytes % (Manual) Monocytes % (Manual) Platelet Estimate Polychromasia Hypochromasia (manual) Sodium Potassium Chloride Carbon Dioxide Anion Gap BUN Creatinine Est GFR ( Amer) Est GFR (Non-Af Amer) Random Glucose Calcium Magnesium Total Bilirubin AST ALT Alkaline Phosphatase Total Protein Albumin Globulin Albumin/Globulin Ratio 25-OH Vitamin D Total 13.5 L TSH 3rd Generation Urine Color Urine Clarity Urine pH Ur Specific [place] Urine Protein Urine Glucose (UA) Urine Ketones Urine Blood Urine Nitrate Urine Bilirubin Urine Urobilinogen Ur Leukocyte Esterase Urine WBC (Auto) Urine RBC (Auto) Ur Squamous Epith Cells Urine Opiates Screen Urine Methadone Screen Ur Barbiturates Screen Ur Phencyclidine Scrn Ur Amphetamines Screen U Benzodiazepines Scrn U Oth Cocaine Metabols U Cannabinoids Screen Alcohol, Quantitative Assessment & Plan - Assessment and Plan (Free Text) Assessment: 56 year old male patient presenting with painful bilateral feet; Resolving Immersion feet vs. Cellulitis Plan: Patient was seen, evaluated discussed in detail with Dr. Platt labs and vitals reviewed (WBC 28.4 yesterday to 13.1 today), Afebrile Bilateral feet open to air without dressings Bacitracin ointment ordered Non-weight bearing to bilateral feet Xrays ordered Podiatry will continue to follow inhouse
--- NOTE | 2017-05-02 14:24 | RAD ---
PROCEDURE: Bilateral Feet Radiographs. HISTORY: Bilateral foot pain COMPARISON: None. FINDINGS: BONES: Right Foot: No acute fracture. Left Foot: No acute fracture. JOINTS: Right Foot: Unremarkable. Left Foot: Unremarkable. SOFT TISSUES: Right Foot: Normal. Left Foot: Normal. OTHER FINDINGS: None. IMPRESSION: No demonstrated fracture or dislocation.
[2017-05-02] MEDS: Bacitracin Ointment 30 GM TUBE TOP SCH (14:52)
[2017-05-03] MEDS: Bacitracin Ointment 30 GM TUBE TOP SCH (10:28)
--- NOTE | 2017-05-03 12:59 | CP.PCM.PN ---
Subjective - Date & Time of Evaluation Date of Evaluation: 05/03/17 Time of Evaluation: 11:00 - Subjective Subjective: Podiatry note rola Dr. Platt 56 yo male patient was seen at bedside this afternoon with attending Dr. Platt concerning bilateral feet pain. Patient is resting comfortably in bed with no report of acute overnight distress. Bilateral feet open to air. Patient still complains of sensitive pain to bilateral plant feet. Patient denies of any N/V/F /C or SOB today. Dr. Platt and the resident was advised by a nurse that the patient was walking around last night without any discomfort. Objective - Vital Signs/Intake and Output Vital Signs (last 24 hours): Temp Pulse Resp BP Pulse Ox 98.8 F 63 19 119/69 99 05/03/17 10:13 05/03/17 10:13 05/03/17 10:13 05/03/17 10:13 05/03/17 10:13 - Medications Medications: Current Medications Al Hydrox/Mg Hydrox/Simethicone (Maalox 30 Ml) 30 ml PO TID PRN PRN Reason: Indigestion / Heartburn Bacitracin (Bacitracin) 0 gm TOP DAILY [facility] Last Admin: 05/03/17 10:28 Dose: 1 applic Clonidine HCl (Catapres) 0.1 mg PO Q8 PRN PRN Reason: COWS Score More or Equal to 5 Dicyclomine HCl (Bentyl) 10 mg PO Q6 PRN PRN Reason: Other Gabapentin (Neurontin) 300 mg PO BID [facility] Last Admin: 05/03/17 10:28 Dose: 300 mg Ibuprofen (Motrin Tab) 400 mg PO Q6 PRN PRN Reason: Pain, moderate (4-7) Last Admin: 05/02/17 10:16 Dose: 400 mg Loperamide HCl (Imodium) 2 mg PO Q8 PRN PRN Reason: Diarrhea Methadone HCl (Methadone) 20 mg PO Q24H [facility] PRN Reason: Taper Stop: 05/08/17 09:59 Last Admin: 05/03/17 10:28 Dose: 20 mg Mirtazapine (Remeron) 15 mg PO HS [facility] Last Admin: 05/02/17 22:42 Dose: Not Given Ondansetron HCl (Zofran Tab) 4 mg PO Q8 PRN PRN Reason: Nausea/Vomiting Trazodone HCl (Desyrel) 50 mg PO HS [facility] Last Admin: 05/02/17 22:42 Dose: Not Given - Labs Labs: 05/02/17 10:50 05/01/17 22:24 - Constitutional Appears: Well, Non-toxic, No Acute Distress - Head Exam Head Exam: ATRAUMATIC - Extremities Exam Additional comments: Bilateral lower extremity exam; Unremarkable as of 05/03/17 DERM: No open wound is noted. No drainage is noted. No mal-odor noted. Mild erythema noted to plantar aspect of bilateral feet. No clinical sign of infection. VASC: Skin warm to touch. Palpable DP and PT noted bilaterally 1/4. PRINTED FORMS PROOFREADER less than 3 seconds noted to all digits NEURO: Gross sensation intact ORTHO: Pain on palpation to bilateral feet plantar aspect. Decreased ROM to joints distal to ankle secondary to guarding Assessment and Plan - Assessment and Plan (Free Text) Assessment: 56 year old male patient presenting with painful bilateral feet; Peripheral neuropathy secondary to chronic ETOH. Resolved immersion feet. Plan: Patient was seen, evaluated discussed in detail with Dr. Platt labs and vitals reviewed; Afebrile Bilateral feet open to air without dressings Bacitracin ointment ordered Xray reviewed; unremarkable; no fx, no abscess Podiatry will continue to follow inhouse
--- NOTE | 2017-05-03 16:28 | PCM.PYCHPN ---
Psychiatric Progress Note - Psychiatric Progress Note Patient seen today, length of contact: 16 mins Patient Chief Complaint: "I feel okay" Problems Identified/Issues Discussed: The pt is seen, chart reviewed, case discussed with staff. Patient complaining of symptoms of withdrawal. Reports two episodes of vomiting yesterday. Committed to attending rehab at [facility]. Denies any problems sleeping. Support given, CBT and [place] used briefly No new symptoms reported, improving slowly and needs more time No SEs from medications, risks discussed. After care discussed Medication Change: Yes Medical Record Reviewed: Yes Mental Status Examination - Cognitive Function Orientation: Person, Place, Situation, Time Memory: Impaired Attention: Poor Concentration: Poor Association: WNL Fund of Knowledge: Poor - Mood Mood: Depressed, Anxious - Affect Affect: Constricted - Formal Thought Process Formal Thought Process: No Impairment - Suicidal Ideation Suicidal Ideation: No - Homicidal Ideation Homicidal Ideation: No Goal/Treatment Plan - Goal/Treatment Plan Need for Continued Stay: Discharge may exacerbated symptoms, Severe functional impairment Progress Toward Problem(s) and Goals/Treatment Plan: methadone detox Gabapentin for augmentation Remeron for sleep and depression relapse prevention As needed medications All risks, benefits and alternatives of the meds discussed, and the pt agreed and understood. Attend groups and activities Supportive therapy and psychoeducation [place] for abstinence CBT for relapse prevention Encourage MAT Refer to rehab or IOP, and self-help groups Smoking cessation with [place] Nicotine patch if needed
[2017-05-04] MEDS: Bacitracin Ointment 30 GM TUBE TOP SCH (11:06)
--- NOTE | 2017-05-04 11:53 | PCM.PYCHPN ---
Psychiatric Progress Note - Psychiatric Progress Note Patient seen today, length of contact: 16 mins Patient Chief Complaint: "I feel nauseous" Problems Identified/Issues Discussed: The pt is seen, chart reviewed, case discussed with staff. Patient complaining of symptoms of withdrawal. Reports one episode of vomiting this morning. Committed to attending rehab at [facility]. Denies any problems sleeping. Support given, CBT and [place] used briefly No new symptoms reported, improving slowly and needs more time No SEs from medications, risks discussed. Mental Status Examination - Cognitive Function Orientation: Person, Place, Situation, Time - Mood Mood: Depressed, Anxious - Affect Affect: Constricted - Speech Speech: Appropriate - Formal Thought Process Formal Thought Process: No Impairment - Suicidal Ideation Suicidal Ideation: No - Homicidal Ideation Homicidal Ideation: No Goal/Treatment Plan - Goal/Treatment Plan Need for Continued Stay: Discharge may exacerbated symptoms, Severe functional impairment Progress Toward Problem(s) and Goals/Treatment Plan: Methadone detox Gabapentin for augmentation Remeron for sleep and depression relapse prevention Trazdone 50mg hs As needed medications All risks, benefits and alternatives of the meds discussed, and the pt agreed and understood. Attend groups and activities Supportive therapy and psychoeducation [place] for abstinence CBT for relapse prevention Encourage MAT Discharge planning SW to [facility]
--- NOTE | 2017-05-04 13:08 | CP.PCM.PN ---
Subjective - Date & Time of Evaluation Date of Evaluation: 05/04/17 Time of Evaluation: 13:06 - Subjective Subjective: Podiatry note rola Dr. Platt 56 yo male patient was seen at bedside this afternoon concerning bilateral feet pain. Patient is resting comfortably in bed with no report of acute overnight distress. Bilateral feet open to air. Patient admits to pain to plantar feet, but says he is able to walk. Patient was advised to bear weight to feet. Patient denies of any N/V/F/C or SOB today. Dr. Platt and the resident was advised by a nurse that the patient was walking around without any discomfort. Objective - Vital Signs/Intake and Output Vital Signs (last 24 hours): Temp Pulse Resp BP Pulse Ox 97.4 F L 49 L 20 119/64 99 05/04/17 10:27 05/04/17 10:27 05/04/17 10:27 05/04/17 10:27 05/04/17 10:27 - Medications Medications: Current Medications Al Hydrox/Mg Hydrox/Simethicone (Maalox 30 Ml) 30 ml PO TID PRN PRN Reason: Indigestion / Heartburn Bacitracin (Bacitracin) 0 gm TOP DAILY [facility] Last Admin: 05/04/17 11:06 Dose: Not Given Clonidine HCl (Catapres) 0.1 mg PO Q8 PRN PRN Reason: COWS Score More or Equal to 5 Dicyclomine HCl (Bentyl) 10 mg PO Q6 PRN PRN Reason: Other Gabapentin (Neurontin) 300 mg PO BID [facility] Last Admin: 05/04/17 11:04 Dose: 300 mg Ibuprofen (Motrin Tab) 400 mg PO Q6 PRN PRN Reason: Pain, moderate (4-7) Last Admin: 05/04/17 11:03 Dose: 400 mg Loperamide HCl (Imodium) 2 mg PO Q8 PRN PRN Reason: Diarrhea Methadone HCl (Methadone) 15 mg PO Q24H [facility] PRN Reason: Taper Stop: 05/08/17 09:59 Last Admin: 05/04/17 11:03 Dose: 15 mg Mirtazapine (Remeron) 15 mg PO [facility] Last Admin: 05/03/17 21:25 Dose: 15 mg Ondansetron HCl (Zofran Tab) 4 mg PO Q8 PRN PRN Reason: Nausea/Vomiting Trazodone HCl (Desyrel) 50 mg PO HS [facility] Last Admin: 05/03/17 21:25 Dose: 50 mg - Labs Labs: 05/02/17 10:50 05/01/17 22:24 - Constitutional Appears: Non-toxic - Extremities Exam Additional comments: Bilateral lower extremity exam; Unremarkable as of 05/03/17 DERM: No open wound is noted. No drainage is noted. No mal-odor noted. No erythema noted to plantar aspect of bilateral feet. No clinical sign of infection. VASC: Skin warm to touch. Palpable DP and PT noted bilaterally 1/4. ELECTRICAL TESTER BATTERY less than 3 seconds noted to all digits NEURO: Gross sensation intact ORTHO: Pain on palpation to bilateral feet plantar aspect. Decreased ROM to joints distal to ankle secondary to guarding Assessment and Plan - Assessment and Plan (Free Text) Assessment: 56 year old male patient presenting with painful bilateral feet; Peripheral neuropathy secondary to chronic ETOH. Resolved immersion feet. Plan: Patient was seen, evaluated discussed in detail with Dr. Platt labs and vitals reviewed; Afebrile Bilateral feet open to air without dressings Bacitracin ointment applied Xray reviewed; unremarkable; no fx, no abscess Patient is stable form podiatry standpoint Podiatry will continue to follow inhouse
[2017-05-05] MEDS: Bacitracin Ointment 30 GM TUBE TOP SCH (09:45)
--- NOTE | 2017-05-05 21:45 | PCM.PYCHPN ---
Psychiatric Progress Note - Psychiatric Progress Note Patient seen today, length of contact: 16 mins Patient Chief Complaint: "I feel tired" Problems Identified/Issues Discussed: The pt is seen, chart reviewed, case discussed with staff. The pt is compliant with medications and reports no side-effects. Symptoms are improving but needs more time to stabilize. After care discussed, support and psychoeducation given. In bed most of the time. Medication Change: Yes (detox changes daily) Medical Record Reviewed: Yes Mental Status Examination - Cognitive Function Orientation: Person, Place, Situation, Time Memory: Impaired Attention: Poor Concentration: Poor Association: WNL Fund of Knowledge: Poor - Mood Mood: Depressed, Anxious - Affect Affect: Constricted - Speech Speech: Appropriate - Formal Thought Process Formal Thought Process: No Impairment - Suicidal Ideation Suicidal Ideation: No - Homicidal Ideation Homicidal Ideation: No Goal/Treatment Plan - Goal/Treatment Plan Need for Continued Stay: Discharge may exacerbated symptoms, Severe functional impairment Progress Toward Problem(s) and Goals/Treatment Plan: methadone detox Gabapentin for augmentation Remeron for sleep and depression relapse prevention As needed medications All risks, benefits and alternatives of the meds discussed, and the pt agreed and understood. Attend groups and activities Supportive therapy and psychoeducation [place] for abstinence CBT for relapse prevention Encourage MAT Refer to rehab or IOP, and self-help groups Smoking cessation with [place] Nicotine patch if needed
--- NOTE | 2017-05-05 21:47 | CP.PCM.PN ---
Subjective - Date & Time of Evaluation Date of Evaluation: 05/05/17 Time of Evaluation: 09:44 - Subjective Subjective: Podiatry note rola Dr. Platt 56 yo male patient was seen at bedside this afternoon concerning bilateral feet pain. Patient is resting comfortably in bed with no report of acute overnight distress. Bilateral feet open to air. Patient admits to pain to plantar feet, but says he is able to walk and says pain is greatly improved since yesterday. Patient was advised to continue bearing weight to feet. Patient denies of any N /V/F/C or SOB today. Objective - Vital Signs/Intake and Output Vital Signs (last 24 hours): Temp Pulse Resp BP Pulse Ox 98.7 F 65 15 109/54 L 97 05/05/17 16:27 05/05/17 16:27 05/05/17 16:27 05/05/17 16:27 05/05/17 16:27 - Medications Medications: Current Medications Al Hydrox/Mg Hydrox/Simethicone (Maalox 30 Ml) 30 ml PO TID PRN PRN Reason: Indigestion / Heartburn Bacitracin (Bacitracin) 0 gm TOP DAILY [facility] Last Admin: 05/05/17 09:45 Dose: 1 applic Clonidine HCl (Catapres) 0.1 mg PO Q8 PRN PRN Reason: COWS Score More or Equal to 5 Dicyclomine HCl (Bentyl) 10 mg PO Q6 PRN PRN Reason: Other Gabapentin (Neurontin) 300 mg PO BID [facility] Last Admin: 05/05/17 17:12 Dose: 300 mg Ibuprofen (Motrin Tab) 400 mg PO Q6 PRN PRN Reason: Pain, moderate (4-7) Last Admin: 05/04/17 11:03 Dose: 400 mg Loperamide HCl (Imodium) 2 mg PO Q8 PRN PRN Reason: Diarrhea Methadone HCl (Methadone) 10 mg PO Q24H [facility] PRN Reason: Taper Stop: 05/08/17 09:59 Last Admin: 05/05/17 09:45 Dose: 10 mg Mirtazapine (Remeron) 15 mg PO HS [facility] Last Admin: 05/05/17 21:14 Dose: 15 mg Ondansetron HCl (Zofran Tab) 4 mg PO Q8 PRN PRN Reason: Nausea/Vomiting Trazodone HCl (Desyrel) 50 mg PO HS [facility] Last Admin: 05/05/17 21:14 Dose: 50 mg - Labs Labs: 05/02/17 10:50 05/01/17 22:24 - Constitutional Appears: Well, Non-toxic, No Acute Distress - Extremities Exam Additional comments: Bilateral lower extremity exam; Unremarkable as of 05/03/17 DERM: No open wound is noted. No drainage is noted. No mal-odor noted. No erythema noted to plantar aspect of bilateral feet. No clinical sign of infection. VASC: Skin warm to touch. Palpable DP and PT noted bilaterally 1/4. ADMINISTRATIVE SERVICES SPECIALIST less than 3 seconds noted to all digits NEURO: Gross sensation intact ORTHO: Pain on palpation to bilateral feet plantar aspect. Decreased ROM to joints distal to ankle secondary to guarding - Neurological Exam Neurological Exam: Alert, Awake, Oriented x3 - Psychiatric Exam Psychiatric exam: Normal Affect, Normal Mood Assessment and Plan - Assessment and Plan (Free Text) Assessment: 56 year old male patient presenting with painful bilateral feet; Peripheral neuropathy secondary to chronic ETOH. Plan: Patient was seen, evaluated discussed in detail with Dr. Platt labs and vitals reviewed; Afebrile Bilateral feet open to air without dressings Pain is resolved at this point Patient is stable form podiatry standpoint Podiatry will sign off at this time. Please reconsult as needed, thank you
[2017-05-06] MEDS: Bacitracin Ointment 30 GM TUBE TOP SCH (09:43)
--- NOTE | 2017-05-07 00:53 | PCM.PYCHPN ---
Psychiatric Progress Note - Psychiatric Progress Note Patient seen today, length of contact: 16 mins Patient Chief Complaint: "I need more time" Problems Identified/Issues Discussed: The pt is seen, chart reviewed, case discussed with staff. The pt is compliant with medications and reports no side-effects. Symptoms are improving but needs more time to stabilize. After care discussed, support and psychoeducation given. Still mostly in bed, somewhat more alert though Medication Change: Yes (detox changes daily) Medical Record Reviewed: Yes Mental Status Examination - Cognitive Function Orientation: Person, Place, Situation, Time Memory: Impaired Attention: Poor Concentration: Poor Association: WNL Fund of Knowledge: Poor - Mood Mood: Depressed, Anxious - Affect Affect: Constricted - Speech Speech: Appropriate - Formal Thought Process Formal Thought Process: No Impairment - Suicidal Ideation Suicidal Ideation: No - Homicidal Ideation Homicidal Ideation: No Goal/Treatment Plan - Goal/Treatment Plan Need for Continued Stay: Discharge may exacerbated symptoms, Severe functional impairment Progress Toward Problem(s) and Goals/Treatment Plan: methadone detox Gabapentin for augmentation Remeron for sleep and depression relapse prevention As needed medications All risks, benefits and alternatives of the meds discussed, and the pt agreed and understood. Attend groups and activities Supportive therapy and psychoeducation [place] for abstinence CBT for relapse prevention Encourage MAT Refer to rehab or IOP, and self-help groups Smoking cessation with [place] Nicotine patch if needed
[2017-05-07] MEDS: Bacitracin Ointment 30 GM TUBE TOP SCH (10:15)
--- NOTE | 2017-05-07 14:26 | PCM.PYCHPN ---
Psychiatric Progress Note - Psychiatric Progress Note Patient seen today, length of contact: 17 mins Patient Chief Complaint: "I feel tired" Problems Identified/Issues Discussed: The pt is seen, chart reviewed, case discussed with staff. The pt is compliant with medications and reports no side-effects. Symptoms are improving but needs more time to stabilize. After care discussed, support and psychoeducation given. In bed most of the time. Agrees with [facility] for aftercare Medication Change: Yes (detox changes daily) Medical Record Reviewed: Yes Mental Status Examination - Cognitive Function Orientation: Person, Place, Situation, Time Memory: Impaired Attention: Poor Concentration: Poor Association: WNL Fund of Knowledge: Poor - Mood Mood: Depressed, Anxious - Affect Affect: Constricted - Speech Speech: Appropriate - Formal Thought Process Formal Thought Process: No Impairment - Suicidal Ideation Suicidal Ideation: No - Homicidal Ideation Homicidal Ideation: No Goal/Treatment Plan - Goal/Treatment Plan Need for Continued Stay: Discharge may exacerbated symptoms, Severe functional impairment Progress Toward Problem(s) and Goals/Treatment Plan: methadone detox Gabapentin for augmentation Remeron for sleep and depression relapse prevention As needed medications All risks, benefits and alternatives of the meds discussed, and the pt agreed and understood. Attend groups and activities Supportive therapy and psychoeducation [place] for abstinence CBT for relapse prevention Encourage MAT Refer to rehab or IOP, and self-help groups Smoking cessation with [place] Nicotine patch if needed Plan for d/c tomorrow
[2017-05-08 06:30] VITALS: RESP 18
--- NOTE | 2017-05-08 10:05 | PCM.PYCHDC ---
Mental Status Examination - Mental Status Examination Orientation: Person, Place, Situation, Time Memory: Intact Mood: Neutral Affect: Constricted Speech: Soft Attention: WNL Concentration: WNL Association: WNL Fund of Knowledge: WNL Formal Thought Process: No Impairment Description of patient's judgement and insight: good, fair Psychotic Thoughts and Behaviors: denies any AVH Suicidal Ideation: No Current Homicidal Ideation?: No Discharge Summary - Discharge Note Reason for Hospitalization: The patient is seen, chart reviewed and case discussed. He is known from a Jan 2017 detox. This is a 56-year-old male, single with no child, unemployed but on welfare, lives in [facility]. The patient is here for heroin detox. He says he stopped alcohol, which was an issues in the near past. He is currently in mild withdrawal from heroin. He uses 30 bags intranasal heroin for many years but the dose increased recently. Alcohol was 2 pints liquor every day also many years. Despite length of use this is his second detox and he has never been to rehabilitation. He was sent to an IOP in [place] but he didn't go. He wants rehab this time. He also smokes 1 pack per day cigarettes but denies others. He feels depressed and he has some anxiety. Past psych history: He had many admissions to psychiatry for depression, suicidality, PTSD. Currently he denies suicidal ideation and no manic or psychotic symptoms elicited. He is less depressed and more like worried about his life situation and escalating use. Family psych history: No drug use but his siblings are also depressed. Medical history: He had full hernia. He also looks older than stated age and slightly emaciated. Consultations:: List each consultation separately and include: 1. Reason for request. 2. Findings. 3. Follow-up Summary of Hospital Course include:: 1. Description of specific treatment plan utilized for patients during their course of treatmen. 2. Summarize the time- course for resolution of acute symptoms and/or regressed behaviors. 3. Describe issues identified and worked on during hospitalization. 4. Describe medication utilized. 5. Describe medical problems identified and treated. 6. Reassessment of suicide risk - Final Diagnosis (DSM 5) Condition upon Discharge: FAIR DSM 5: Opioid withdrawal Opioid use d/o- severe Alcohol use d/o - severe, in early remission Major depressive d/o - recurrent, mild Disposition: HOME/ ROUTINE Prescriptions/Medication Reconciliation: Gabapentin [Neurontin] 300 mg PO BID #60 cap Mirtazapine [Remeron] 15 mg PO HS #30 tab traZODone [Desyrel] 50 mg PO HS #30 tab
[2017-05-08 10:18] VITALS: BP 102/57; PULSE 63; TEMP 98.3; O2SAT 99
== END 2017-05-08 11:16 | disposition home or self-care (01) | DRG 745 ==
LOC: C.ER 21:38 → C.7D 05-02 01:37
PROC: HZ2ZZZZ Detoxification Services for Substance Abuse Treatment (ICD-10-PCS; principal; 2017-05-02)
PROC: HZ56ZZZ Individual Psychotherapy for Substance Abuse Treatment, Psychoeducation (ICD-10-PCS; 2017-05-02)
PROC: GZ3ZZZZ Medication Management (ICD-10-PCS; 2017-05-02)
DX: F11.23 Opioid dependence with withdrawal (principal); F33.0 Major depressive disorder, recurrent, mild; F17.210 Nicotine dependence, cigarettes, uncomplicated; F43.10 Post-traumatic stress disorder, unspecified; G62.1 Alcoholic polyneuropathy; F10.21 Alcohol dependence, in remission; E78.5 Hyperlipidemia, unspecified; E78.00 Pure hypercholesterolemia, unspecified; Z59.0 Homelessness

== ENCOUNTER 2017-06-04 00:55 | Emergency (ER) | payer MEDICAID, OTHER ==
[2017-06-04 00:56] VITALS: BMI 22.1
[2017-06-04 01:09] VITALS: O2SAT 100
--- NOTE | 2017-06-04 03:23 | C.PDOC ---
History Of Present Illness 56 year old male presents to the ED c/o pain located in his RUQ that has been going on for the past 2 weeks. Patient reports she worsened today. Patient denies nausea, vomit, diarrhea, fever, chills, back pain, dysuria, hematuria. Time Seen by Provider: 06/04/17 01:14 Chief Complaint (Nursing): Abdominal Pain History Per: Patient History/Exam Limitations: no limitations Onset/Duration Of Symptoms: Days Current Symptoms Are (Timing): Worse Location Of Pain/Discomfort: RUQ Radiation Of Pain To:: None Quality Of Discomfort: "Pain" Exacerbating Factors: None Last Bowel Movement: Yesterday Recent travel outside of the [place]: No Additional History Per: Patient Past Medical History Reviewed: Historical Data, Nursing Documentation, Vital Signs Vital Signs: Last Vital Signs Temp 97.9 F 06/04/17 01:05 Pulse 60 06/04/17 01:05 Resp 20 06/04/17 01:05 BP 123/60 06/04/17 01:05 Pulse Ox 100 06/04/17 03:26 - Medical History PMH: Anxiety, Depression, Gastritis, Hiatal Hernia, Hypercholesterolemia, Hyperlipidemia, Post Traumatic Stress Disorder Denies: Asthma (Denied), Diabetes, Hepatitis, HIV, HTN, Chronic Kidney Disease, Seizures, Sexually Transmitted Disease Surgical History: No Surg Hx - [facility] DETOXIFICATION SERVICES FOR SUBSTANCE ABUSE TREATMENT (05/02/17) GROUP PSYCHOTHERAPY (02/15/17) INDIV PSYCHOTHERAPY FOR SUBSTANCE ABUSE TREATMENT, SUPPORT (02/01/17) INDIV PSYCHOTHERAPY FOR SUBSTANCE ABUSE, COGNITIV BEHAVIORAL (02/01/17) INDIV PSYCHOTHERAPY FOR SUBSTANCE ABUSE, MOTIVATION ENHANCE (02/15/17) INDIV PSYCHOTHERAPY FOR SUBSTANCE ABUSE, PSYCHOEDUCATION (05/02/17) MEDICATION MANAGEMENT (05/02/17) Family History: States: [place], CAD, Diabetes - Social History Hx Alcohol Use: No (Denied) Hx Substance Use: Yes - Immunization History Hx Tetanus Toxoid Vaccination: No Hx Influenza Vaccination: No Hx Pneumococcal Vaccination: No Review Of Systems Constitutional: Negative for: Fever, Chills Cardiovascular: Negative for: Chest Pain, Palpitations Respiratory: Negative for: Shortness of Breath Gastrointestinal: Positive for: Abdominal Pain. Negative for: Nausea, Vomiting , Diarrhea Skin: Negative for: Rash Neurological: Negative for: Weakness, Numbness Physical Exam - Physical Exam Appears: Non-toxic, No Acute Distress Skin: Normal Color, Warm, Dry Head: Atraumatic, Normacephalic Eye(s): bilateral: Normal Inspection Nose: No Discharge Oral Mucosa: Moist Neck: Normal ROM, Supple Chest: Symmetrical Cardiovascular: Rhythm Regular, No Murmur Respiratory: Normal Breath Sounds, No Rales, No Rhonchi, No Wheezing Gastrointestinal/Abdominal: Soft, Tenderness (RUQ), No Guarding, No Rebound Extremity: Normal ROM, No Tenderness, No Swelling Neurological/Psych: Oriented x3 Gait: Steady ED Course And Treatment - Laboratory Results Result Diagrams: 06/04/17 03:22 18 03:22 O2 Sat by Pulse Oximetry: 100 (ON RA) Pulse Ox Interpretation: Normal Progress Note: Plan: - Toradol 15 mg IVP. - Labs. Patient was found eating a large donut while in the ED, patient is not actively vomiting but is still c/o pain. Reevaluation Time: 04:17 Reassessment Condition: Improved (Pt is comfortably sleeping in NAD , VSS. All labs reviewed and d/w pt who is advised to follwo up in clinic. Pt understands and agrees with plan) Disposition Counseled Patient/Family Regarding: Diagnosis, Need For Followup, Rx Given - Disposition Disposition: HOME/ ROUTINE Disposition Time: 04:26 Condition: GOOD Additional Instructions: Please follow up with PMD Return to ER if worse Forms: [facility] (Faroese) - Clinical Impression Clinical Impression: Abdominal pain - PA / TERMITE CONTROL REPRESENTATIVE / Resident Statement MD/DO has reviewed & agrees with the documentation as recorded. - Scribe Statement The provider has reviewed the documentation as recorded by the Scribe Luis Miguel Fleming All medical record entries made by the Rosaibjakob were at my direction and personally dictated by me. I have reviewed the chart and agree that the record accurately reflects my personal performance of the history, physical exam, medical decision making, and the department course for this patient. I have also personally directed, reviewed, and agree with the discharge instructions and disposition.
[2017-06-04 03:27] LABS: BASO # 0.1 K/uL (0.0-0.2); EOS # 0.4 K/uL (0.0-0.7); LYMPH # 1.8 K/uL (1.0-4.3); NEUT % 63.9 % (50.0-75.0)
[2017-06-04 03:31] LABS: ALB/GLOB RATIO 1.1 (1.0-2.1); ALBUMIN 3.6 g/dL (3.5-5.0); ALT/SGPT 8 U/L (21-72); AST/SGOT 22 U/L (17-59); BASO % 0.9 % (0.0-2.0); BLOOD UREA NITROGEN 15 mg/dL (9-20); CALCIUM 8.8 mg/dl (8.6-10.4); EOS % 4.9 % (0.0-4.0); GFR AFRICAN-AMERICAN > 60; GFR NON-AFRICAN AMERICAN > 60; HEMOGLOBIN 11.4 g/dL (12.0-18.0); LIPASE 164 U/L (23-300); MEAN CELL VOLUME 84.8 fL (80.0-94.0); MEAN CORPUSCULAR HEMOGLOBIN 27.6 pg (27.0-31.0); MEAN CORPUSCULAR HGB CONC 32.6 g/dL (33.0-37.0); MEAN PLATELET VOLUME 6.9 fL (7.2-11.7); MONO # 0.7 K/uL (0.0-0.8); MONO % 8.3 % (0.0-10.0); NEUT # 5.1 K/uL (1.8-7.0); NRBC % 0.2 % (0.0-2.0); RBC 4.11 Mil/uL (4.40-5.90); RED CELL DISTRIBUTION WIDTH 14.7 % (11.5-14.5)
[2017-06-04 05:01] VITALS: BP 128/78; PULSE 98; RESP 16; TEMP 98
== END 2017-06-04 03:55 | disposition home or self-care (01) ==
LOC: C.ER 00:55
DX: R10.11 Right upper quadrant pain (principal)
CPT/HCPCS: 80053; 82948; 83690; 85025; 96374; 99284; J1885

== ENCOUNTER 2017-06-05 05:17 | Inpatient (IN) | payer MEDICAID, OTHER ==
[2017-06-05 05:17] VITALS: BMI 22.1
--- NOTE | 2017-06-05 06:17 | C.PDOC ---
History Of Present Illness <Jory Silver - Last Filed: 06/05/17 09:18> <Jessica Cerrato - Last Filed: 06/10/17 10:08> 56 y/o male presents to the ED stating has not taken psych meds in a while and feels like hurting myself. Admits to heroin use 2 days ago. No pain. States he needs a place to warm up. (+) h/o depression with admissions. (Jessica Cerrato) <Jory Silver - Last Filed: 06/05/17 09:18> History Per: Patient History/Exam Limitations: no limitations Onset/Duration Of Symptoms: Hrs Current Symptoms Are (Timing): Still Present <Jessica Cerrato - Last Filed: 06/10/17 10:08> Time Seen by Provider: 06/05/17 05:55 Chief Complaint (Nursing): Medical Clearance Past Medical History Reviewed: Historical Data, Nursing Documentation, Vital Signs - Medical History PMH: Anxiety, Depression, Gastritis, Hiatal Hernia, Hypercholesterolemia, Hyperlipidemia, Post Traumatic Stress Disorder Denies: Asthma (Denied), Diabetes, Hepatitis, HIV, HTN, Chronic Kidney Disease, Seizures, Sexually Transmitted Disease Surgical History: No Surg Hx Family History: States: [place], CAD, Diabetes - Social History Hx Alcohol Use: No (Denied) Hx Substance Use: Yes - Immunization History Hx Tetanus Toxoid Vaccination: No Hx Influenza Vaccination: No Hx Pneumococcal Vaccination: No <Jessica Cerrato - Last Filed: 06/10/17 10:08> Vital Signs: Last Vital Signs Temp 98 F 06/10/17 06:50 Pulse 83 06/10/17 08:43 Resp 20 06/10/17 06:50 BP 113/73 06/10/17 08:43 Pulse Ox 98 06/09/17 18:37 - [facility] DETOXIFICATION SERVICES FOR SUBSTANCE ABUSE TREATMENT (05/02/17) GROUP PSYCHOTHERAPY (02/15/17) INDIV PSYCHOTHERAPY FOR SUBSTANCE ABUSE TREATMENT, SUPPORT (02/01/17) INDIV PSYCHOTHERAPY FOR SUBSTANCE ABUSE, COGNITIV BEHAVIORAL (02/01/17) INDIV PSYCHOTHERAPY FOR SUBSTANCE ABUSE, MOTIVATION ENHANCE (02/15/17) INDIV PSYCHOTHERAPY FOR SUBSTANCE ABUSE, PSYCHOEDUCATION (05/02/17) MEDICATION MANAGEMENT (05/02/17) Review Of Systems Except As Marked, All Systems Reviewed And Found Negative. Constitutional: Negative for: Fever Respiratory: Negative for: Shortness of Breath Gastrointestinal: Negative for: Vomiting Psych: Positive for: Suicidal ideation. Negative for: Other (plan) <Jessica Cerrato - Last Filed: 06/10/17 10:08> Physical Exam - Physical Exam Appears: Non-toxic, No Acute Distress, Unkempt Skin: Warm, Dry Head: Atraumatic, Normacephalic Eye(s): bilateral: Normal Inspection, EOMI Nose: Normal Oral Mucosa: Moist Neck: Normal ROM, Supple Chest: Symmetrical Respiratory: No Accessory Muscle Use Gastrointestinal/Abdominal: Soft, No Tenderness Extremity: Normal ROM Extremity: Bilateral: Atraumatic, Normal ROM Neurological/Psych: Oriented x3, Normal Speech, No Other (focal deficits) <Jessica Cerrato - Last Filed: 06/10/17 10:08> ED Course And Treatment - Laboratory Results Result Diagrams: 06/05/17 07:53 06/05/17 07:53 <Jory Silver - Last Filed: 06/05/17 09:18> - Laboratory Results Result Diagrams: 06/05/17 07:53 06/05/17 07:53 O2 Sat by Pulse Oximetry: 98 (RA) Pulse Ox Interpretation: Normal Progress Note: coke worker will speak to patient. Pt endorsed to HUBERT Silver pending labs and crisis evaluation. <Jessica Cerrato - Last Filed: 06/10/17 10:08> Medical Decision Making <Jory Silver - Last Filed: 06/05/17 09:18> <Jessica Cerrato - Last Filed: 06/10/17 10:08> Medical Decision Making: received s/o from HUBERT [place]; pt reports depression and si, wants to throw himself in front of a truck. pt stopped taking medications (seroquel, prozac and clonopn a few days ago, reports a friend a few days ago. (Jory Silver) Disposition Discussed With : Russ Adames Doctor Will See Patient In The: Hospital - Disposition Disposition Time: 09:20 <Jory Silver - Last Filed: 06/05/17 09:18> <Jessica Cerrato - Last Filed: 06/10/17 10:08> - Disposition Disposition: HOSPITALIZED Condition: STABLE - Clinical Impression Clinical Impression: Depression, Opioid use disorder, moderate, dependence <Jory Silver - Last Filed: 06/05/17 09:18> - PA / BANANA GRADER / Resident Statement MD/DO has reviewed & agrees with the documentation as recorded. - Scribe Statement The provider has reviewed the documentation as recorded by the Scribe (Dorcas Contreras) <Jessica Cerrato - Last Filed: 06/10/17 10:08> - Scribe Statement All medical record entries made by the Scribe were at my direction and personally dictated by me. I have reviewed the chart and agree that the record accurately reflects my personal performance of the history, physical exam, medical decision making, and the department course for this patient. I have also personally directed, reviewed, and agree with the discharge instructions and disposition. (Jessica Cerrato)
[2017-06-05 07:58] LABS: BASO # 0.1 K/uL (0.0-0.2); BASO % 0.9 % (0.0-2.0); EOS # 0.2 K/uL (0.0-0.7); EOS % 2.3 % (0.0-4.0); HEMOGLOBIN 12.7 g/dL (12.0-18.0); LYMPH # 1.4 K/uL (1.0-4.3); LYMPH % 19.7 % (20.0-40.0); MEAN CELL VOLUME 84.1 fL (80.0-94.0); MEAN CORPUSCULAR HGB CONC 33.3 g/dL (33.0-37.0); MEAN PLATELET VOLUME 7.2 fL (7.2-11.7); MONO # 0.4 K/uL (0.0-0.8); MONO % 5.8 % (0.0-10.0); NEUT # 5.1 K/uL (1.8-7.0); NEUT % 71.3 % (50.0-75.0); RBC 4.52 Mil/uL (4.40-5.90); RED CELL DISTRIBUTION WIDTH 14.6 % (11.5-14.5); WHITE BLOOD COUNT 7.1 K/uL (4.8-10.8)
[2017-06-05 08:18] LABS: SQUAMOUS EPITHIAL < 1 /hpf (0-5); URINE BILIRUBIN NEGATIVE (NEGATIVE); URINE BLOOD NEGATIVE (NEGATIVE); URINE CLARITY Clear (Clear); URINE COLOR Yellow (YELLOW); URINE GLUCOSE (UA) NORMAL (Normal); URINE HYALINE CAST 0-2 /lpf (0-2); URINE LEUKOCYTE ESTERASE NEG Leu/uL (Negative); URINE PROTEIN NEGATIVE (NEGATIVE); URINE UROBILINOGEN NORMAL mg/dL (0.2-1.0)
[2017-06-05 08:19] LABS: ALB/GLOB RATIO 1.1 (1.0-2.1); ALBUMIN 3.8 g/dL (3.5-5.0); ALT/SGPT 10 U/L (21-72); AST/SGOT 28 U/L (17-59); BLOOD UREA NITROGEN 12 mg/dL (9-20); CALCIUM 8.6 mg/dl (8.6-10.4); GFR AFRICAN-AMERICAN > 60; GFR NON-AFRICAN AMERICAN > 60
[2017-06-05 08:48] LABS: BARBITURATES, UR NEGATIVE (NEGATIVE); BENZODIAZEPINES, UR NEGATIVE (NEGATIVE); PHENCYCLIDINE, UR NEGATIVE (NEGATIVE)
[2017-06-05 09:12] LABS: OPIATES, UR POSITIVE (NEGATIVE)
--- NOTE | 2017-06-05 11:51 | PCM.BM ---
<Stephanie Beann - Last Filed: 06/05/17 11:48> Treatment Plan Problems - Problems identified on initial assessmt Depression Date Initiated: 06/05/17 Time Initiated: 11:49 Assessment reference: NA Status: Active Suicidal Ideation Date Initiated: 06/05/17 Time Initiated: 11:49 Assessment reference: NA Status: Monitor Substance abuse Date Initiated: 06/05/17 Time Initiated: 11:50 Assessment reference: NA Status: Active Treatment assets and liabiliti Patient Assests: cooperative, ADL independent, negotiates basic needs, cognitively intact Patient Liabilities: live alone, financial problems, poor support system, relationship conflicts, substance abuse - Milieu Protocol Maintain good personal hygiene: daily Encourage regular showers, daily Remind patient to perform daily oral care, daily Assist patient to perform ADL's Conduct patient checks and document Observation sheet: Q15 minutes Maintain personal safety: every shift Educate patient to report safety concerns to staff, every shift Monitor environment for contraband/sharps Medication safety: Monitor for expected outcome, potential side effects: every shift, Assess barriers to learning: every shift, Assess readiness for medication education: every shift <Russ Adames - Last Filed: 06/08/17 11:35> - Diagnosis (1) Major depress dis, severe Status: Acute Interventions: 06/08/17 11:35 * Assess/adjust medications daily and /or as needed * See patient on an individual basis 7x/week to assess symptoms of depression * Monitor for side effects & effectiveness of medications * (2) Opioid use disorder, moderate, dependence Status: Acute Interventions: 06/08/17 11:36 * Assess 7x/week regarding severity of withdrawal * Educate regarding risks, benefits, side effects and alternatives of medications * Use Motivational Interviewing for abstinence * Use CBT for relapse prevention * Medication management for withdrawal symptoms * Encourage medication assisted treatment * <Yenny Maldonado - Last Filed: 06/09/17 10:07> Family Contact Family involvement: Patient does not wish Family/SO involvement Family contact: Patient declines to allow family contact at present - Goals for Treatment Patient goals for treatment: "I do know what type of treatment I want at this time." Discharge/Continuing Care - Education Needs Education Needs: Patient Medication, Patient Diagnosis/Disease Process, Patient Coping Skills, Patient Community resources, Patient Activities of Daily Living, Patient Aftercare Safety Plan - Discharge Discharge Criteria: Free of Suicidal thoughts, Normal sleep pattern, Ability to care for self, No longer exhibiting s/s of withdrawal, Reduction of target symptoms Discharge to:: Jail, Substance Abuse Rehab - Treatment Team Participation Discussed with Family/SO: No Was Patient/Family/SO present at Treatment Team Meeting: Yes
--- NOTE | 2017-06-05 12:21 | PCM.PSYCH ---
Initial Psychiatric Evaluation - Initial Psychiatric Evaluation Type of Admission: Voluntary Legal Status: Capacity Chief Complaint (in patient's own words): I was feeling depressed and suicidal.' History of Present Illness and Precipitating Events: This is a 56 year old CM who presented to the ED with depressed mood and suicidal ideation without any specific plan. As per the ED noted, 'pt states he just can't take it anymore and doesn't want to live. Pt reports he lost a friend of his who was found frozen to on the street. He reports history abusing heroin 1-10 bags intranasally, last abused was a couple of days ago. Patient reports withdrawal symptoms including nausea, headaches, joint pains and sweating. He reports depressed mood and feelings of hopelessness and helplessness. He reports poor sleep and poor appetite. Pt also reported using " coke every now and then" He reports an extensive psychiatric history of "depression" adding that he is prescribed Seroquel, Prozac and Klonopin. He reports h/o more than 1 inpatient psychiatric hospitalizations, last discharged from [facility] in 2014. He used to follow up with an unknown psychiatrist in the past. Pt denies HI or A/V/ T hallucinations. Pt vaguely reports past SI attempts. Pt reports heroin use regularly, stating his last use was a couple of days ago. Pt states he used one bag but usually up to 10 bags of use intranasally. PMH: None reported Current Medications: Active Medications Generic Name Dose Route Start Last Admin Trade Name Freq PRN Reason Stop Dose Admin Pneumococcal Polyvalent Vaccine 0.5 ml 06/05/17 14:00 Pneumovax 23 Vaccine IM 06/05/17 14:01 .ONCE ONE Past Psychiatric History - Past Psychiatric History Previous Treatment History: Inpatient Pertinent Medical Hx (Current Medical&Sleep Prob, Allergies): Allergies Allergy/AdvReac Type Severity Reaction Status Date / Time No Known Allergies Allergy Verified 06/05/17 05:30 No Known Home Med 06/04/17 Review of Systems - Review of Systems All systems: reviewed and no additional remarkable complaints except - Psychiatric Psychiatric: Anxiety, Irritability, Suicidal Ideation Mental Status Examination - Personal Presentation Personal Presentation: Looks stated age - Affect Affect: Constricted, Depressed - Motor Activity Motor Activity: Calm - Reliability in Providing Information Reliability in Providing Information: Fair - Speech Speech: Organized - Mood Mood: Depressed, Anxious - Formal Thought Process Formal Thought Process: No Impairment - Obsessions/Compulsions Obsessions: No Compulsions: No - Cognitive Functions Orientation: Person, Place, Situation, Time Sensorium: Alert Attention/Concentration: Attentive Abstract Thinking: [place] Estimate of Intelligence: Below average Judgement: Imparied, as evidence by: Poor judgement, Imparied, as evidence by: Lack of insight into illness - Risk Risk: Suicidal, Withdrawal, Diminished functioning - Limitations Limitations: Living alone DSM 5 DX - DSM 5 DSM 5 Diagnosis: Major depressive disorder recurrent severe without psychotic features Opioid use disorder severe Opioid withdrawal Cocaine use disorder moderate - Recommended/Plan of Treatment Treatment Recommendations and Plan of Treatment: Major depressive disorder recurrent severe without psychotic features -Psychoeducation -Supportive therapy, group therapy, individual therapy -Celexa 20 mg -Neurontin 100 mg by mouth 3 times a day -Trazodone 50 mg by mouth daily at bedtime Opioid use disorder severe -Psychoeducation -Supportive therapy, individual therapy -Use PR for abstinence Opioid withdrawal -Psychoeducation -Supportive therapy, individual therapy -Clonidine when necessary -Start methadone taper -Start prn meds Cocaine use disorder moderate -Monitor signs and symptoms -Use PR for abstinence - Smoking Cessation Smoking Cessation Initiated: No
[2017-06-05] MEDS ORDERED: Aluminum Hydroxide/Magnesium Hydroxide Susp (30 mL) PO PRN (12:22)
--- NOTE | 2017-06-06 11:24 | PCM.PYCHPN ---
Psychiatric Progress Note - Psychiatric Progress Note Patient seen today, length of contact: 16 min Patient Chief Complaint: I was feeling depressed and suicidal.' Problems Identified/Issues Discussed: Patient seen and evaluated, chart reviewed and discussed with the nurse. He reports depressed mood and feelings of hopelessness and helplessness. He still reports suicidal ideation without any plan. Patient remained isolated, confined and withdrawn. Patient reports withdrawal symptoms including nausea, headaches, cramps and sweating. Patient is compliant with medications and denies any side effects. Symptoms are improving but need more time to stabilize. Support and psychoeducation given. Medication Change: Yes Medical Record Reviewed: Yes Mental Status Examination - Cognitive Function Orientation: Person, Place, Situation, Time Memory: Intact Attention: WNL Concentration: Poor Association: WNL Fund of Knowledge: Poor - Mood Mood: Depressed, Anxious - Affect Affect: Constricted, Depressed - Speech Speech: Soft - Formal Thought Process Formal Thought Process: No Impairment - Suicidal Ideation Suicidal Ideation: No - Homicidal Ideation Homicidal Ideation: No Goal/Treatment Plan - Goal/Treatment Plan Need for Continued Stay: Severe depression anxiety, Severe functional impairment Progress Toward Problem(s) and Goals/Treatment Plan: Major depressive disorder recurrent severe without psychotic features -Psychoeducation -Supportive therapy, group therapy, individual therapy -Celexa 20 mg -Neurontin 100 mg by mouth 3 times a day -Trazodone 50 mg by mouth daily at bedtime Opioid use disorder severe -Psychoeducation -Supportive therapy, individual therapy -Use DE for abstinence Opioid withdrawal -Psychoeducation -Supportive therapy, individual therapy -Clonidine when necessary -Start methadone taper -Start prn meds Cocaine use disorder moderate -Monitor signs and symptoms -Use DE for abstinence - Smoking Cessation Smoking Cessation Initiated: No
--- NOTE | 2017-06-06 14:18 | CP.PCM.PN ---
Subjective - Date & Time of Evaluation Date of Evaluation: 06/06/17 Time of Evaluation: 14:14 - Subjective Subjective: Patient was seen and examined by me. States he has had some pain in the feet starting today bilaterally. Located on the plantar aspect of the feet. No associated fever or chills. Not complaining of any nausea, vomiting or diarrhea. Denies any numbness or tingling. Denies any weakness. Denies any rash. States he noticed 2 small abrasions on each foot. States he noticed them today and has not been aware of them prior. On examination the feet have two small abrasions on each foot surrounded by areas of dry flaking skin. No evidence of infection is present. No drainage, no surrounding erythema or increased warmth. Patient has full sensation and muscle strength. I spoke with the nurse and told her this is a problem best managed by Podiatry. No need for medical consult at this time. Please feel free to reach out to me if you have any further questions or concerns. Thank you. Objective - Vital Signs/Intake and Output Vital Signs (last 24 hours): Temp Pulse Resp BP Pulse Ox 98.1 F 54 L 18 101/58 L 99 06/06/17 05:58 06/06/17 05:58 06/06/17 05:58 06/06/17 05:58 06/05/17 09:11 - Medications Medications: Current Medications Al Hydrox/Mg Hydrox/Simethicone (Maalox 30 Ml) 30 ml PO TID PRN PRN Reason: Indigestion / Heartburn Citalopram Hydrobromide (Celexa) 20 mg PO DAILY [facility] Last Admin: 06/06/17 09:54 Dose: 20 mg Clonidine HCl (Catapres) 0.1 mg PO Q8 PRN PRN Reason: COWS Score More or Equal to 5 Gabapentin (Neurontin) 100 mg PO TID [facility] Last Admin: 06/06/17 13:17 Dose: 100 mg Hydroxyzine HCl (Atarax) 25 mg PO Q6 PRN PRN Reason: Agitation Ibuprofen (Motrin Tab) 600 mg PO Q6 PRN PRN Reason: Pain, moderate (4-7) Last Admin: 06/06/17 13:50 Dose: 600 mg Loperamide HCl (Imodium) 2 mg PO Q8 PRN PRN Reason: Diarrhea Methadone HCl (Methadone) 10 mg PO DAILY [facility] PRN Reason: Taper Stop: 06/08/17 09:59 Last Admin: 06/06/17 09:54 Dose: 10 mg Ondansetron HCl (Zofran Tab) 4 mg PO Q8 PRN PRN Reason: Nausea/Vomiting Pneumococcal Polyvalent Vaccine (Pneumovax 23 Vaccine) 0.5 ml IM .ONCE ONE Stop: 06/07/17 14:01 Trazodone HCl (Desyrel) 50 mg PO [facility] Last Admin: 06/05/17 21:10 Dose: 50 mg - Labs Labs: 06/05/17 07:53 06/05/17 07:53
--- NOTE | 2017-06-06 17:01 | CP.PCM.CON ---
History of Present Illness - History of Present Illness History of Present Illness: Podiatry Consult Note- Dr. Platt 56 yea old male reports bleeding fissure to bilateral heels. Painful to walk for long periods. Pain graded 5/10 bilaterally. bleeding has stopped, however socks are stained with localized areas of blood. Pt reports no high friction or excess dryness to areas. Pt deneis recent fever, chills, nasea, vommitng. Past Patient History - Infectious Disease Hx of Infectious Diseases: None - Past Medical History & Family History Past Medical History?: Yes - Past Social History Smoking Status: Heavy Smoker > 10 Cigarettes Daily - CARDIAC Hx Hypertension: No - PULMONARY Hx Asthma: No (Denied) - NEUROLOGICAL Hx Seizures: No - HEENT Hx HEENT Problems: No - RENAL Hx Chronic Kidney Disease: No - ENDOCRINE/METABOLIC Hx Endocrine Disorders: No - HEMATOLOGICAL/ONCOLOGICAL Hx Human Immunodeficiency Virus (HIV): No - INTEGUMENTARY Hx Dermatological Problems: No - MUSCULOSKELETAL/RHEUMATOLOGICAL Hx Musculoskeletal Disorders: Yes Hx Falls: No (Denied) Hx Herniated Disk: Yes - GASTROINTESTINAL Hx Gastritis: Yes Other/Comment: hiatal hernia - GENITOURINARY/GYNECOLOGICAL Hx Sexually Transmitted Disorders: No - PSYCHIATRIC Hx Substance Use: No - SURGICAL HISTORY Hx Surgeries: No (Denied) - ANESTHESIA Hx Anesthesia: No Hx Anesthesia Reactions: No Hx Malignant Hyperthermia: No Meds Allergies/Adverse Reactions: Allergies Allergy/AdvReac Type Severity Reaction Status Date / Time No Known Allergies Allergy Verified 06/05/17 05:30 - Medications Medications: Current Medications Al Hydrox/Mg Hydrox/Simethicone (Maalox 30 Ml) 30 ml PO TID PRN PRN Reason: Indigestion / Heartburn Citalopram Hydrobromide (Celexa) 20 mg PO DAILY [facility] Last Admin: 06/06/17 09:54 Dose: 20 mg Clonidine HCl (Catapres) 0.1 mg PO Q8 PRN PRN Reason: COWS Score More or Equal to 5 Gabapentin (Neurontin) 100 mg PO TID [facility] Last Admin: 06/06/17 13:17 Dose: 100 mg Hydroxyzine HCl (Atarax) 25 mg PO Q6 PRN PRN Reason: Agitation Ibuprofen (Motrin Tab) 600 mg PO Q6 PRN PRN Reason: Pain, moderate (4-7) Last Admin: 06/06/17 13:50 Dose: 600 mg Loperamide HCl (Imodium) 2 mg PO Q8 PRN PRN Reason: Diarrhea Methadone HCl (Methadone) 10 mg PO DAILY [facility] PRN Reason: Taper Stop: 06/08/17 09:59 Last Admin: 06/06/17 09:54 Dose: 10 mg Ondansetron HCl (Zofran Tab) 4 mg PO Q8 PRN PRN Reason: Nausea/Vomiting Pneumococcal Polyvalent Vaccine (Pneumovax 23 Vaccine) 0.5 ml IM .ONCE ONE Stop: 06/07/17 14:01 Trazodone HCl (Desyrel) 50 mg PO HS [facility] Last Admin: 06/05/17 21:10 Dose: 50 mg Physical Exam - Constitutional Appears: Well, Non-toxic, No Acute Distress - Extremities Exam Additional comments: ACC: Bilateral heals and metatarsal pads exhibit heel fissuring with extension into dermal surface, tender to tough with pepe-fissure non-blanchable erythema, extending <2cm from fissure margins. No active drainage noted. Plantar forefoot and midfoot xerosis noted. No inter-digital macerations noted. Neuro-vascular status intact bilaterally. - Neurological Exam Neurological exam: Alert, Oriented x3 Results - Vital Signs Recent Vital Signs: Last Vital Signs Temp 98.1 F 06/06/17 05:58 Pulse 56 L 06/06/17 16:22 Resp 18 06/06/17 05:58 BP 111/61 06/06/17 16:22 Pulse Ox 99 06/05/17 09:11 - Labs Result Diagrams: 06/05/17 07:53 06/05/17 07:53 Assessment & Plan - Assessment and Plan (Free Text) Assessment: 56 year old male with bilateral acral foot fissure with cellulits. Plan: Pt seen and evaluated. Discussed with attending, Dr. Platt, who endorsed the following plan. Chart, labs, and vitals reviewed. WBC=7.1. Prescribed Amlactin cream for use to bilateral plantar feet daily. Prescribed Bactroban for application to areas of fissure daily. Weight bearing status as tolerated bilaterally. Podiatry will continue to follow this patient while inhouse. - Date & Time Date: 06/06/17 Time: 17:01
[2017-06-06] MEDS: Ammonium Lactate 12% Lotion (225 g) EXT SCH (17:10)
[2017-06-07] MEDS: Ammonium Lactate 12% Lotion (225 g) EXT SCH ×2 (10:05→17:16)
[2017-06-07] MEDS ORDERED: Pneumococcal 23-Valent Vaccine IM ONE (14:00)
--- NOTE | 2017-06-07 14:19 | CP.PCM.PN ---
Subjective - Date & Time of Evaluation Date of Evaluation: 06/07/17 Time of Evaluation: 14:17 - Subjective Subjective: Podiatry Progress Note- Dr. Platt 56 year old male seen at bedside for dermal fissures to bilateral heels. Painful to walk for long periods. Pain has decreased to a 4/10 bilaterally. Bleeding has stopped. Pt reports no high friction or excess dryness to areas. Pt denies and acute overnight events. Objective - Vital Signs/Intake and Output Vital Signs (last 24 hours): Temp Pulse Resp BP Pulse Ox 98.3 F 56 L 18 105/49 L 99 06/07/17 06:06 06/07/17 06:06 06/07/17 06:06 06/07/17 06:06 06/05/17 09:11 - Medications Medications: Current Medications Al Hydrox/Mg Hydrox/Simethicone (Maalox 30 Ml) 30 ml PO TID PRN PRN Reason: Indigestion / Heartburn Citalopram Hydrobromide (Celexa) 40 mg PO DAILY [facility] Clonidine HCl (Catapres) 0.1 mg PO Q8 PRN PRN Reason: COWS Score More or Equal to 5 Gabapentin (Neurontin) 300 mg PO TID [facility] Hydroxyzine HCl (Atarax) 25 mg PO Q6 PRN PRN Reason: Agitation Ibuprofen (Motrin Tab) 600 mg PO Q6 PRN PRN Reason: Pain, moderate (4-7) Last Admin: 06/07/17 10:15 Dose: 600 mg Lactic Acid (Lac-Hydrin 12% Lotion (225 G)) 0 gm EXT BID [facility] Last Admin: 06/07/17 10:05 Dose: 1 applic Loperamide HCl (Imodium) 2 mg PO Q8 PRN PRN Reason: Diarrhea Methadone HCl (Methadone) 5 mg PO DAILY [facility] PRN Reason: Taper Stop: 06/08/17 09:59 Last Admin: 06/07/17 10:16 Dose: 5 mg Mupirocin (Bactroban Ointment) 0 gm TOP BID [facility] Last Admin: 06/07/17 10:02 Dose: 1 applic Ondansetron HCl (Zofran Tab) 4 mg PO Q8 PRN PRN Reason: Nausea/Vomiting Trazodone HCl (Desyrel) 50 mg PO [facility] Last Admin: 06/06/17 21:12 Dose: 50 mg - Labs Labs: 06/05/17 07:53 06/05/17 07:53 - Constitutional Appears: Well, Non-toxic, No Acute Distress - Extremities Exam Additional comments: ACC: Bilateral heals and metatarsal pads exhibit heel fissuring with extension into dermal surface, tender to touch with pepe-fissure blanchable erythema, terminating at fissure margins. No active drainage noted. Plantar forefoot and midfoot xerosis noted. No inter-digital macerations noted. Neuro-vascular status intact bilaterally. - Neurological Exam Neurological Exam: Alert, Awake, Oriented x3 - Psychiatric Exam Psychiatric exam: Normal Affect, Normal Mood Assessment and Plan - Assessment and Plan (Free Text) Assessment: 56 year old male with bilateral acral foot fissure with cellulits, resolving. Plan: Pt seen and evaluated with attending, Dr. Platt, present. Chart, labs, and vitals reviewed. WBC=7.1. Applied Amlactin cream for xerotic plantar feet daily. Applied Bactroban areas of fissure daily. Weight bearing status as tolerated bilaterally. Heels stable and presentation stable and improved. Cellulitis improved. Pt is stable from Podiatry standpoint. Will follow this patient while inhouse.
[2017-06-08] MEDS: Ammonium Lactate 12% Lotion (225 g) EXT SCH ×2 (10:16→17:26)
--- NOTE | 2017-06-08 11:28 | PCM.PYCHPN ---
Psychiatric Progress Note - Psychiatric Progress Note Patient seen today, length of contact: 15 min Patient Chief Complaint: I was feeling depressed and suicidal.' Problems Identified/Issues Discussed: Patient seen and evaluated, chart reviewed and discussed with the nurse. He still reports depressed mood and feelings of hopelessness and helplessness. He still reports suicidal ideation without any plan. Patient remained isolated, confined and withdrawn. Patient reports withdrawal symptoms including nausea, headaches, cramps and sweating. Patient is compliant with medications and denies any side effects. Symptoms are improving but need more time to stabilize. Support and psychoeducation given. Medication Change: Yes (methadone taper) Medical Record Reviewed: Yes Mental Status Examination - Cognitive Function Orientation: Person, Place, Situation, Time Memory: Intact Attention: WNL Concentration: Poor Association: WNL Fund of Knowledge: Poor - Mood Mood: Depressed, Anxious - Affect Affect: Constricted, Depressed - Speech Speech: Soft - Formal Thought Process Formal Thought Process: No Impairment - Suicidal Ideation Suicidal Ideation: No - Homicidal Ideation Homicidal Ideation: No Goal/Treatment Plan - Goal/Treatment Plan Need for Continued Stay: Severe depression anxiety, Severe functional impairment Progress Toward Problem(s) and Goals/Treatment Plan: Major depressive disorder recurrent severe without psychotic features -Psychoeducation -Supportive therapy, group therapy, individual therapy -Celexa 40 mg -Neurontin 400 mg by mouth 3 times a day -Trazodone 100 mg by mouth daily at bedtime Opioid use disorder severe -Psychoeducation -Supportive therapy, individual therapy -Use [place] for abstinence Opioid withdrawal -Psychoeducation -Supportive therapy, individual therapy -Clonidine when necessary -Methadone taper -prn meds Cocaine use disorder moderate -Monitor signs and symptoms -Use [place] for abstinence Foot wound IM consulted - Smoking Cessation Smoking Cessation Initiated: No
--- NOTE | 2017-06-09 01:14 | PCM.PYCHPN ---
Psychiatric Progress Note - Psychiatric Progress Note Patient seen today, length of contact: 15 min Patient Chief Complaint: I am feeling little better.' Problems Identified/Issues Discussed: Patient seen and evaluated, chart reviewed and discussed with the nurse. He still reports depressed mood and feelings of hopelessness and helplessness. He still reports suicidal ideation without any plan. However, patient remained isolated, confined and withdrawn. Patient reports improvement in the withdrawal symptoms. He was seen by IM because of foot wound. Patient is compliant with medications and denies any side effects. Symptoms are improving but need more time to stabilize. Support and psychoeducation given. Medication Change: No Medical Record Reviewed: Yes Mental Status Examination - Cognitive Function Orientation: Person, Place, Situation, Time Memory: Intact Attention: WNL Concentration: Poor Association: WNL Fund of Knowledge: Poor - Mood Mood: Depressed, Anxious - Affect Affect: Constricted, Depressed - Speech Speech: Soft - Formal Thought Process Formal Thought Process: No Impairment - Suicidal Ideation Suicidal Ideation: No - Homicidal Ideation Homicidal Ideation: No Goal/Treatment Plan - Goal/Treatment Plan Need for Continued Stay: Severe depression anxiety, Severe functional impairment Progress Toward Problem(s) and Goals/Treatment Plan: Major depressive disorder recurrent severe without psychotic features -Psychoeducation -Supportive therapy, group therapy, individual therapy -Celexa 40 mg -Neurontin 400 mg by mouth 3 times a day -Trazodone 100 mg by mouth daily at bedtime Opioid use disorder severe -Psychoeducation -Supportive therapy, individual therapy -Use [place] for abstinence Opioid withdrawal -Psychoeducation -Supportive therapy, individual therapy -Clonidine when necessary -d/c Methadone taper -prn meds Cocaine use disorder moderate -Monitor signs and symptoms -Use [place] for abstinence Foot wound IM consulted - Smoking Cessation Smoking Cessation Initiated: No
[2017-06-09] MEDS: Ammonium Lactate 12% Lotion (225 g) EXT SCH ×2 (09:23→17:12)
[2017-06-10] MEDS: Ammonium Lactate 12% Lotion (225 g) EXT SCH ×2 (09:18→17:25)
--- NOTE | 2017-06-10 20:48 | PCM.PYCHPN ---
Psychiatric Progress Note - Psychiatric Progress Note Patient seen today, length of contact: 15 min Patient Chief Complaint: "Not good" Problems Identified/Issues Discussed: The pt is seen, chart reviewed, case discussed with staff. Support given, CBT and NH used briefly No new symptoms reported, improving slowly and needs more time No SEs from medications, risks discussed. After care discussed Medication Change: No Medical Record Reviewed: Yes Mental Status Examination - Cognitive Function Orientation: Person, Place, Situation, Time Memory: Intact Attention: WNL Concentration: Poor Association: WNL Fund of Knowledge: Poor - Mood Mood: Depressed, Anxious - Affect Affect: Constricted, Depressed - Speech Speech: Soft - Formal Thought Process Formal Thought Process: No Impairment - Suicidal Ideation Suicidal Ideation: No - Homicidal Ideation Homicidal Ideation: No Goal/Treatment Plan - Goal/Treatment Plan Need for Continued Stay: Severe depression anxiety, Severe functional impairment Progress Toward Problem(s) and Goals/Treatment Plan: Continue medications Support and psychoeducation daily Attend groups and activities daily After care planning by SHRUTHI
--- NOTE | 2017-06-11 00:32 | PCM.PYCHPN ---
Psychiatric Progress Note - Psychiatric Progress Note Patient seen today, length of contact: 16 min Patient Chief Complaint: "Depressed" Problems Identified/Issues Discussed: The pt is seen, chart reviewed, case discussed with staff. The pt is compliant with medications and reports no side-effects. Symptoms are improving but needs more time to stabilize. After care discussed, support and psychoeducation given. Still he says he is very depressed - isolates self a lot Medication Change: No Medical Record Reviewed: Yes Mental Status Examination - Cognitive Function Orientation: Person, Place, Situation, Time Memory: Intact Attention: WNL Concentration: Poor Association: WNL Fund of Knowledge: Poor - Mood Mood: Depressed, Anxious - Affect Affect: Constricted, Depressed - Speech Speech: Soft - Formal Thought Process Formal Thought Process: No Impairment - Suicidal Ideation Suicidal Ideation: No - Homicidal Ideation Homicidal Ideation: No Goal/Treatment Plan - Goal/Treatment Plan Need for Continued Stay: Severe depression anxiety, Severe functional impairment Progress Toward Problem(s) and Goals/Treatment Plan: Continue medications Support and psychoeducation daily Attend groups and activities daily After care planning by SHRUTHI
[2017-06-11] MEDS: Ammonium Lactate 12% Lotion (225 g) EXT SCH ×2 (09:54→17:26)
--- NOTE | 2017-06-11 11:19 | PCM.PYCHPN ---
Psychiatric Progress Note - Psychiatric Progress Note Patient seen today, length of contact: 16 min Patient Chief Complaint: I am feeling little better.' Problems Identified/Issues Discussed: Patient seen and evaluated, chart reviewed and discussed with the nurse. He still reports depressed mood and feelings of hopelessness and helplessness. He still reports suicidal ideation without any plan. However, patient remained isolated, confined and withdrawn. Patient reports improvement in the withdrawal symptoms. He was seen by IM because of foot wound. Patient is compliant with medications and denies any side effects. Symptoms are improving but need more time to stabilize. Support and psychoeducation given. Medication Change: No Medical Record Reviewed: Yes Mental Status Examination - Cognitive Function Orientation: Person, Place, Situation, Time Memory: Intact Attention: WNL Concentration: Poor Association: WNL Fund of Knowledge: Poor - Mood Mood: Depressed, Anxious - Affect Affect: Constricted, Depressed - Speech Speech: Soft - Formal Thought Process Formal Thought Process: No Impairment - Suicidal Ideation Suicidal Ideation: No - Homicidal Ideation Homicidal Ideation: No Goal/Treatment Plan - Goal/Treatment Plan Need for Continued Stay: Severe depression anxiety, Severe functional impairment Progress Toward Problem(s) and Goals/Treatment Plan: Major depressive disorder recurrent severe without psychotic features -Psychoeducation -Supportive therapy, group therapy, individual therapy -Celexa 40 mg -Neurontin 400 mg by mouth 3 times a day -Trazodone 100 mg by mouth daily at bedtime Opioid use disorder severe -Psychoeducation -Supportive therapy, individual therapy -Use [place] for abstinence Opioid withdrawal -Psychoeducation -Supportive therapy, individual therapy -Clonidine when necessary -d/c Methadone taper -prn meds Cocaine use disorder moderate -Monitor signs and symptoms -Use [place] for abstinence Foot wound IM consulted
[2017-06-12] MEDS: Ammonium Lactate 12% Lotion (225 g) EXT SCH ×2 (10:12→17:58)
--- NOTE | 2017-06-12 14:25 | PCM.PYCHPN ---
Psychiatric Progress Note - Psychiatric Progress Note Patient seen today, length of contact: 16 min Patient Chief Complaint: I am feeling little better.' Problems Identified/Issues Discussed: Patient seen and evaluated, chart reviewed and discussed with the nurse. He still reports depressed mood and feelings of hopelessness and helplessness. He still reports suicidal ideation without any plan. However, patient remained isolated, confined and withdrawn. Patient reports improvement in the withdrawal symptoms. He was seen by IM because of foot wound. Patient is compliant with medications and denies any side effects. Symptoms are improving but need more time to stabilize. Support and psychoeducation given. Medication Change: No Medical Record Reviewed: Yes Mental Status Examination - Cognitive Function Orientation: Person, Place, Situation, Time Memory: Intact Attention: WNL Concentration: Poor Association: WNL Fund of Knowledge: Poor - Mood Mood: Depressed, Anxious - Affect Affect: Constricted, Depressed - Speech Speech: Soft - Formal Thought Process Formal Thought Process: No Impairment - Suicidal Ideation Suicidal Ideation: No - Homicidal Ideation Homicidal Ideation: No Goal/Treatment Plan - Goal/Treatment Plan Need for Continued Stay: Severe depression anxiety, Severe functional impairment Progress Toward Problem(s) and Goals/Treatment Plan: Major depressive disorder recurrent severe without psychotic features -Psychoeducation -Supportive therapy, group therapy, individual therapy -Celexa 40 mg -Neurontin 400 mg by mouth 3 times a day -Trazodone 100 mg by mouth daily at bedtime Opioid use disorder severe -Psychoeducation -Supportive therapy, individual therapy -Use [place] for abstinence Opioid withdrawal -Psychoeducation -Supportive therapy, individual therapy -Clonidine when necessary -d/c Methadone taper -prn meds Cocaine use disorder moderate -Monitor signs and symptoms -Use [place] for abstinence Foot wound IM consulted
--- NOTE | 2017-06-13 13:43 | PCM.BM ---
<Yenny Maldonado - Last Filed: 06/13/17 13:42> Treatment Plan Problems - Problems identified on initial assessmt Depression Date Initiated: 06/05/17 Time Initiated: 11:49 Assessment reference: NA Status: Active Suicidal Ideation Date Initiated: 06/05/17 Time Initiated: 11:49 Assessment reference: NA Status: Monitor Substance abuse Date Initiated: 06/05/17 Time Initiated: 11:50 Assessment reference: NA Status: Active Treatment assets and liabiliti Patient Assests: cooperative, ADL independent, negotiates basic needs, cognitively intact Patient Liabilities: live alone, financial problems, poor support system, relationship conflicts, substance abuse - Milieu Protocol Maintain good personal hygiene: daily Encourage regular showers, daily Remind patient to perform daily oral care, daily Assist patient to perform ADL's Conduct patient checks and document Observation sheet: Q15 minutes Maintain personal safety: every shift Educate patient to report safety concerns to staff, every shift Monitor environment for contraband/sharps Medication safety: Monitor for expected outcome, potential side effects: every shift, Assess barriers to learning: every shift, Assess readiness for medication education: every shift Milieu Narrative: Major depressive disorder recurrent severe without psychotic features -Psychoeducation -Supportive therapy, group therapy, individual therapy -Celexa 40 mg -Neurontin 400 mg by mouth 3 times a day -Trazodone 100 mg by mouth daily at bedtime Opioid use disorder severe -Psychoeducation -Supportive therapy, individual therapy -Use TN for abstinence Opioid withdrawal -Psychoeducation -Supportive therapy, individual therapy -Clonidine when necessary -d/c Methadone taper -prn meds Cocaine use disorder moderate -Monitor signs and symptoms -Use TN for abstinence Foot wound IM consulted Family Contact Family involvement: Patient does not wish Family/SO involvement Family contact: Patient declines to allow family contact at present - Goals for Treatment Patient goals for treatment: "I do know what type of treatment I want at this time." Discharge/Continuing Care - Education Needs Education Needs: Patient Medication, Patient Diagnosis/Disease Process, Patient Coping Skills, Patient Community resources, Patient Activities of Daily Living, Patient Aftercare Safety Plan - Discharge Discharge Criteria: Free of Suicidal thoughts, Normal sleep pattern, Ability to care for self, No longer exhibiting s/s of withdrawal, Reduction of target symptoms Discharge to:: [facility]-Way, Substance Abuse Rehab - Treatment Team Participation Patient/Family/SO Statement: Major depressive disorder recurrent severe without psychotic features -Psychoeducation -Supportive therapy, group therapy, individual therapy -Celexa 40 mg -Neurontin 400 mg by mouth 3 times a day -Trazodone 100 mg by mouth daily at bedtime Opioid use disorder severe -Psychoeducation -Supportive therapy, individual therapy -Use TN for abstinence Opioid withdrawal -Psychoeducation -Supportive therapy, individual therapy -Clonidine when necessary -d/c Methadone taper -prn meds Cocaine use disorder moderate -Monitor signs and symptoms -Use TN for abstinence Foot wound IM consulted Discussed with Family/SO: No Was Patient/Family/SO present at Treatment Team Meeting: Yes Treatment Plan Review - Problem Depression Time Initiated: 11:49 Suicidal Ideation Time Initiated: 11:49 Substance abuse Time Initiated: 11:50 - Discharge / Continuing Care Discharge to:: Substance Abuse Rehab Behavioral Health Services: Residential treatment Health Needs: Medications/Rx, Alcohol/Drug treatment <Russ Adames - Last Filed: 06/14/17 11:34> - Diagnosis (1) Major depress dis, severe Status: Acute Interventions: 06/14/17 11:34 * Assess/adjust medications daily and /or as needed * See patient on an individual basis 7x/week to assess symptoms of depression * Monitor for side effects & effectiveness of medications * (2) Opioid use disorder, moderate, dependence Status: Acute Interventions: 06/14/17 11:34 * Assess 7x/week regarding severity of withdrawal * Educate regarding risks, benefits, side effects and alternatives of medications * Use Motivational Interviewing for abstinence * Use CBT for relapse prevention * Medication management for withdrawal symptoms * Encourage medication assisted treatment *
[2017-06-13] MEDS: Ammonium Lactate 12% Lotion (225 g) EXT SCH ×2 (14:04→17:37)
--- NOTE | 2017-06-13 23:57 | PCM.PYCHPN ---
Psychiatric Progress Note - Psychiatric Progress Note Patient seen today, length of contact: 16 min Patient Chief Complaint: I am feeling little better.' Problems Identified/Issues Discussed: Patient seen and evaluated, chart reviewed and discussed with the nurse. He reports improvement in his mood and improvement in feelings of hopelessness and helplessness. However, patient remained isolated, confined and withdrawn. Patient reports improvement in the withdrawal symptoms. He is looking forward in going to rehabilitation after discharge. Patient is compliant with medications and denies any side effects. Symptoms are improving but need more time to stabilize. Support and psychoeducation given. Medication Change: No Medical Record Reviewed: Yes Mental Status Examination - Cognitive Function Orientation: Person, Place, Situation, Time Memory: Intact Attention: WNL Concentration: Poor Association: WNL Fund of Knowledge: Poor - Mood Mood: Depressed, Anxious - Affect Affect: Constricted, Depressed - Speech Speech: Soft - Formal Thought Process Formal Thought Process: No Impairment - Suicidal Ideation Suicidal Ideation: No - Homicidal Ideation Homicidal Ideation: No Goal/Treatment Plan - Goal/Treatment Plan Need for Continued Stay: Severe depression anxiety, Severe functional impairment Progress Toward Problem(s) and Goals/Treatment Plan: Major depressive disorder recurrent severe without psychotic features -Psychoeducation -Supportive therapy, group therapy, individual therapy -Celexa 40 mg -Neurontin 400 mg by mouth 3 times a day -Trazodone 100 mg by mouth daily at bedtime Opioid use disorder severe -Psychoeducation -Supportive therapy, individual therapy -Use MD for abstinence Opioid withdrawal -Psychoeducation -Supportive therapy, individual therapy -Clonidine when necessary -d/c Methadone taper -prn meds Cocaine use disorder moderate -Monitor signs and symptoms -Use MD for abstinence Foot wound IM consulted
[2017-06-14] MEDS: Ammonium Lactate 12% Lotion (225 g) EXT SCH ×2 (10:03→18:18)
--- NOTE | 2017-06-14 11:35 | PCM.PYCHPN ---
Psychiatric Progress Note - Psychiatric Progress Note Patient seen today, length of contact: 16 min Patient Chief Complaint: I am feeling better.' Problems Identified/Issues Discussed: Patient seen and evaluated, chart reviewed and discussed with the nurse. Pt has been accepted by rehab, however he reports a lot of anxiety and poor sleep. He still reports depressed mood and he remained isolated, confined and withdrawn. Patient is compliant with medications and denies any side effects. Symptoms are improving but need more time to stabilize. Support and psychoeducation given. Medication Change: Yes (increase trazodone) Medical Record Reviewed: Yes Mental Status Examination - Cognitive Function Orientation: Person, Place, Situation, Time Memory: Intact Attention: WNL Concentration: Poor Association: WNL Fund of Knowledge: Poor - Mood Mood: Depressed, Anxious - Affect Affect: Constricted, Depressed - Speech Speech: Soft - Formal Thought Process Formal Thought Process: No Impairment - Suicidal Ideation Suicidal Ideation: No - Homicidal Ideation Homicidal Ideation: No Goal/Treatment Plan - Goal/Treatment Plan Need for Continued Stay: Severe depression anxiety, Severe functional impairment Progress Toward Problem(s) and Goals/Treatment Plan: Major depressive disorder recurrent severe without psychotic features -Psychoeducation -Supportive therapy, group therapy, individual therapy -Celexa 40 mg -Neurontin 400 mg by mouth 3 times a day -Trazodone 200 mg by mouth daily at bedtime Opioid use disorder severe -Psychoeducation -Supportive therapy, individual therapy -Use PR for abstinence Opioid withdrawal -Psychoeducation -Supportive therapy, individual therapy -Clonidine when necessary -d/c Methadone taper -prn meds Cocaine use disorder moderate -Monitor signs and symptoms -Use PR for abstinence Foot wound IM consulted - Smoking Cessation Smoking Cessation Initiated: No
[2017-06-15] MEDS: Ammonium Lactate 12% Lotion (225 g) EXT SCH ×2 (10:00→17:22)
[2017-06-16] MEDS: Ammonium Lactate 12% Lotion (225 g) EXT SCH ×2 (10:34→17:37)
--- NOTE | 2017-06-16 17:22 | PCM.PYCHPN ---
Psychiatric Progress Note - Psychiatric Progress Note Patient seen today, length of contact: 17 min Patient Chief Complaint: "I'm tired" Problems Identified/Issues Discussed: The pt is seen, chart reviewed, case discussed with staff. Support given, CBT and WI used briefly No new symptoms reported, improving slowly and needs more time No SEs from medications, risks discussed. After care discussed Medication Change: No Medical Record Reviewed: Yes Mental Status Examination - Cognitive Function Orientation: Person, Place, Situation, Time Memory: Intact Attention: WNL Concentration: Poor Association: WNL Fund of Knowledge: Poor - Mood Mood: Depressed, Anxious - Affect Affect: Constricted, Depressed - Speech Speech: Soft - Formal Thought Process Formal Thought Process: No Impairment - Suicidal Ideation Suicidal Ideation: No - Homicidal Ideation Homicidal Ideation: No Goal/Treatment Plan - Goal/Treatment Plan Need for Continued Stay: Severe depression anxiety, Severe functional impairment Progress Toward Problem(s) and Goals/Treatment Plan: Continue medications Support and psychoeducation daily Attend groups and activities daily After care planning by SHRUTHI
[2017-06-17 06:25] VITALS: O2SAT 99
[2017-06-17] MEDS: Ammonium Lactate 12% Lotion (225 g) EXT SCH ×2 (09:40→17:36)
[2017-06-18 05:56] VITALS: RESP 16; TEMP 96.3
--- NOTE | 2017-06-18 06:41 | PCM.PYCHPN ---
Psychiatric Progress Note - Psychiatric Progress Note Patient seen today, length of contact: 15 MIN Patient Chief Complaint: I THINK I HAVE KIDNEY STONES. BUT I AM LESS DEPRESSED Problems Identified/Issues Discussed: PT SEEN AND EXAMINED, DISCUSSED WITH STAFF DISCUSSED AFTERCARE Medical Problems: KIDNEY STONES Diagnostic Results: REVIEWED DSM 5 Symptoms Update: LESS ANHEDONIC SOME VOLITION THINKING ABOUT THE FUTURE Medication Change: Yes (INCREASE TRAZODONE) Medical Record Reviewed: Yes Mental Status Examination - Cognitive Function Orientation: Place, Situation Memory: Intact Attention: WNL Concentration: WNL Association: WNL Fund of Knowledge: WNL - Mood Mood: Depressed, Anxious, Neutral - Affect Affect: Other - Speech Speech: Appropriate, Soft - Formal Thought Process Formal Thought Process: No Impairment - Suicidal Ideation Suicidal Ideation: No - Homicidal Ideation Homicidal Ideation: No Goal/Treatment Plan - Goal/Treatment Plan Need for Continued Stay: Severe depression anxiety, Discharge may exacerbated symptoms, Severe functional impairment Progress Toward Problem(s) and Goals/Treatment Plan: MAJOR DEPRESSIVE DISORDER PROZAC SEROSAVANNAL KLONOPIN TRAZODONE MT CBT SUPPORTIVE PSYCHOTHERAPY OPIATE WITHDRAWAL METHADONE TAPER FINISHED OPIATE USE DISORDER CBT MT GROUP MILIEU AND RECREATIONAL THERAPY Estimated Date of D/C: 06/25/17 - Smoking Cessation Smoking Cessation Initiated: Yes
[2017-06-18 09:11] VITALS: BP 122/69; PULSE 88
[2017-06-18] MEDS: Ammonium Lactate 12% Lotion (225 g) EXT SCH (09:44)
--- NOTE | 2017-06-18 09:49 | PCM.PYCHDC ---
Mental Status Examination - Mental Status Examination Orientation: Person, Place, Situation, Time Memory: Intact Mood: Neutral Affect: Constricted Speech: Soft Attention: WNL Concentration: WNL Association: WNL Fund of Knowledge: WNL Formal Thought Process: No Impairment Description of patient's judgement and insight: good,fair Psychotic Thoughts and Behaviors: denies any AVH Suicidal Ideation: No Current Homicidal Ideation?: No Discharge Summary - Discharge Note Reason for Hospitalization: This is a 56 year old CM who presented to the ED with depressed mood and suicidal ideation without any specific plan. As per the ED noted, 'pt states he just can't take it anymore and doesn't want to live. Pt reports he lost a friend of his who was found frozen to on the street. He reports history abusing heroin 1-10 bags intranasally, last abused was a couple of days ago. Patient reports withdrawal symptoms including nausea, headaches, joint pains and sweating. He reports depressed mood and feelings of hopelessness and helplessness. He reports poor sleep and poor appetite. Pt also reported using " coke every now and then" He reports an extensive psychiatric history of "depression" adding that he is prescribed Seroquel, Prozac and Klonopin. He reports h/o more than 1 inpatient psychiatric hospitalizations, last discharged from [facility] in 2014. He used to follow up with an unknown psychiatrist in the past. Pt denies HI or A/V/ T hallucinations. Pt vaguely reports past SI attempts. Pt reports heroin use regularly, stating his last use was a couple of days ago. Pt states he used one bag but usually up to 10 bags of use intranasally. Consultations:: List each consultation separately and include: 1. Reason for request. 2. Findings. 3. Follow-up Summary of Hospital Course include:: 1. Description of specific treatment plan utilized for patients during their course of treatmen. 2. Summarize the time- course for resolution of acute symptoms and/or regressed behaviors. 3. Describe issues identified and worked on during hospitalization. 4. Describe medication utilized. 5. Describe medical problems identified and treated. 6. Reassessment of suicide risk Summary of Hospital Course: During the course of his stay, patient (pt) started progressively improving and he no longer remained irritable, depressed, and suicidal. His mood was improved and he started attending groups and meetings and started socializing. Patient denied any feelings of hopelessness, helplessness, and worthlessness, denied any problem with the sleep or appetite, denied suicidal ideation or homicidal ideation. Pt denied any auditory or visual hallucinations. Some changes were made in his current medications and patient was discharged on following medications. He tolerated these medications very well and denied any side effects. CBT and MO were used. Pt discharged to the [facility]. - Diagnosis (1) Major depress dis, severe Status: Acute (2) Opioid use disorder, moderate, dependence Status: Acute - Final Diagnosis (DSM 5) Condition upon Discharge: STABLE DSM 5: Major depressive disorder recurrent severe without psychotic features Opioid use disorder severe Opioid withdrawal Cocaine use disorder moderate Disposition: HOME/ ROUTINE Follow-up Treatment Plan: Pt was educated and counseled about the risks and benefits of taking and not taking medications. Pt was educated and counseled about the risks of drinking and abusing drugs. Pt was educated and counseled to go to the ER or call 911 if pt develop suicidal ideation or homicidal ideation, worsening of symptoms or severe side effects of the meds. Prescriptions/Medication Reconciliation: Citalopram [celEXA] 20 mg PO DAILY #60 tab Gabapentin [Neurontin] 400 mg PO TID #90 cap Ibuprofen [Motrin Tab] 600 mg PO TID #90 tab traZODone [Desyrel] 100 mg PO HS #60 tab - Smoking Cessation Smoking Cessation Medication prescribed: No - Antipsychotic Medications Pt discharged on 2 or more routine antipsychotic medications: No
--- NOTE | 2017-06-18 17:30 | PCM.PYCHPN ---
Psychiatric Progress Note - Psychiatric Progress Note Patient seen today, length of contact: 16 min Patient Chief Complaint: I am feeling better.' Problems Identified/Issues Discussed: Patient seen and evaluated, chart reviewed and discussed with the nurse. He reports improvement in his mood and improvement in feelings of hopelessness and helplessness. However, patient remained isolated, confined and withdrawn. Patient reports improvement in the withdrawal symptoms. He is looking forward in going to rehabilitation after discharge. Patient is compliant with medications and denies any side effects. Symptoms are improving but need more time to stabilize. Support and psychoeducation given. Medication Change: No Medical Record Reviewed: Yes Mental Status Examination - Cognitive Function Orientation: Person, Place, Situation, Time Memory: Intact Attention: WNL Concentration: WNL Association: WNL Fund of Knowledge: WNL - Mood Mood: Anxious - Affect Affect: Constricted - Speech Speech: Soft - Formal Thought Process Formal Thought Process: No Impairment - Suicidal Ideation Suicidal Ideation: No - Homicidal Ideation Homicidal Ideation: No Goal/Treatment Plan - Goal/Treatment Plan Need for Continued Stay: Severe depression anxiety, Severe functional impairment Progress Toward Problem(s) and Goals/Treatment Plan: Major depressive disorder recurrent severe without psychotic features -Psychoeducation -Supportive therapy, group therapy, individual therapy -Celexa 40 mg -Neurontin 400 mg by mouth 3 times a day -Trazodone 100 mg by mouth daily at bedtime Opioid use disorder severe -Psychoeducation -Supportive therapy, individual therapy -Use PA for abstinence Opioid withdrawal -Psychoeducation -Supportive therapy, individual therapy -Clonidine when necessary -d/c Methadone taper -prn meds Cocaine use disorder moderate -Monitor signs and symptoms -Use PA for abstinence Foot wound IM consulted Estimated Date of D/C: 06/25/17 - Smoking Cessation Smoking Cessation Initiated: No
== END 2017-06-18 12:13 | disposition home or self-care (01) | DRG 430 ==
LOC: C.ER 05:17 → C.9E 09:09 → C.5E 09:44
PROVIDERS: ADMIT Psychiatry & Neurology Psychiatry; ATTEND Psychiatry & Neurology Psychiatry
PROC: GZHZZZZ Group Psychotherapy (ICD-10-PCS; principal; 2017-06-05)
DX: F33.2 Major depressive disorder, recurrent severe without psychotic features (principal); F11.23 Opioid dependence with withdrawal; N18.9 Chronic kidney disease, unspecified; E11.22 Type 2 diabetes mellitus with diabetic chronic kidney disease; F43.10 Post-traumatic stress disorder, unspecified; I12.9 Hypertensive chronic kidney disease with stage 1 through stage 4 chronic kidney disease, or unspecified chronic kidney disease; I25.10 Atherosclerotic heart disease of native coronary artery without angina pectoris; N20.0 Calculus of kidney; F17.219 Nicotine dependence, cigarettes, with unspecified nicotine-induced disorders; E78.5 Hyperlipidemia, unspecified

== ENCOUNTER 2017-07-09 21:02 | Inpatient (IN) | payer MEDICAID ==
[2017-07-09 21:02] VITALS: BMI 22.1
[2017-07-09 21:59] LABS: BASO # 0.1 K/uL (0.0-0.2); EOS # 0.4 K/uL (0.0-0.7); EOS % 5.2 % (0.0-4.0); HEMOGLOBIN 10.1 g/dL (12.0-18.0); LYMPH # 1.8 K/uL (1.0-4.3); LYMPH % 21.3 % (20.0-40.0); MEAN CELL VOLUME 85.3 fL (80.0-94.0); MEAN CORPUSCULAR HEMOGLOBIN 27.8 pg (27.0-31.0); MEAN CORPUSCULAR HGB CONC 32.6 g/dL (33.0-37.0); MEAN PLATELET VOLUME 6.8 fL (7.2-11.7); MONO # 0.8 K/uL (0.0-0.8); MONO % 9.4 % (0.0-10.0); NEUT # 5.2 K/uL (1.8-7.0); NEUT % 63.1 % (50.0-75.0); RBC 3.62 Mil/uL (4.40-5.90); RED CELL DISTRIBUTION WIDTH 16.7 % (11.5-14.5); WHITE BLOOD COUNT 8.3 K/uL (4.8-10.8)
--- NOTE | 2017-07-09 22:00 | C.PDOC ---
History Of Present Illness 56 year old male presents to the emergency department with complaints of severe depression and auditory hallucinations from a recently friend who is "telling him to join the other side". Patient is currently on Prozac, Klonopin, and ..... Patient states he attempted suicide today by taking 16 bags of heroine. Patient reports he has been smoking a pack a day for the last four years, but denies cocaine use. Patient reports a past medical history of hiatal hernia, herniated discs in his lumbar area, as well as a left shoulder lipoma. Patient denies any allergies. Time Seen by Provider: 07/09/17 21:25 Chief Complaint (Nursing): Psychiatric Evaluation History Per: Patient History/Exam Limitations: no limitations Onset/Duration Of Symptoms: Hrs Current Symptoms Are (Timing): Still Present Suicide/Self Injury Attempted (Context): Other (heroin overdose attemp) Modifying Factor(s): Other (heroin) Associated Symptoms: Depression, Suicidal Thoughts, Suicidal Plan, Other ( auditory hallucinations) Past Medical History Reviewed: Historical Data, Nursing Documentation, Vital Signs Vital Signs: Last Vital Signs Temp 99 F 07/10/17 00:15 Pulse 90 07/10/17 00:15 Resp 20 07/10/17 00:15 BP 130/90 07/10/17 00:15 Pulse Ox 96 07/10/17 00:54 - Medical History PMH: Anxiety, Depression, Gastritis, Hiatal Hernia, Hypercholesterolemia, Hyperlipidemia, Post Traumatic Stress Disorder, Schizophrenia Denies: Asthma (Denied), Diabetes, Hepatitis, HIV, HTN, Chronic Kidney Disease, Seizures, Sexually Transmitted Disease Surgical History: No Surg Hx - [facility] Procedures DETOXIFICATION SERVICES FOR SUBSTANCE ABUSE TREATMENT (05/02/17) GROUP PSYCHOTHERAPY (06/05/17) INDIV PSYCHOTHERAPY FOR SUBSTANCE ABUSE TREATMENT, SUPPORT (02/01/17) INDIV PSYCHOTHERAPY FOR SUBSTANCE ABUSE, COGNITIV BEHAVIORAL (02/01/17) INDIV PSYCHOTHERAPY FOR SUBSTANCE ABUSE, MOTIVATION ENHANCE (02/15/17) INDIV PSYCHOTHERAPY FOR SUBSTANCE ABUSE, PSYCHOEDUCATION (05/02/17) MEDICATION MANAGEMENT (05/02/17) Family History: States: [place], CAD, Diabetes - Social History Hx Tobacco Use: Yes (1 pack a day for the last 40 years) Hx Alcohol Use: No (Denied) Hx Substance Use: Yes - Immunization History Hx Tetanus Toxoid Vaccination: No Hx Influenza Vaccination: No Hx Pneumococcal Vaccination: No Review Of Systems Except As Marked, All Systems Reviewed And Found Negative. Neurological: Positive for: Altered Mental Status Psych: Positive for: Depression, Suicidal ideation, Other (auditory hallucinations) Physical Exam - Physical Exam Appears: Non-toxic, No Acute Distress Skin: Normal Color, Warm, Dry Head: Atraumatic, Normacephalic Eye(s): bilateral: Normal Inspection, PERRL, EOMI Nose: Normal Oral Mucosa: Moist Neck: Supple Cardiovascular: Rhythm Regular, No Murmur Respiratory: Normal Breath Sounds, No Rales, No Rhonchi, No Wheezing Gastrointestinal/Abdominal: Normal Exam, Soft, No Tenderness, No Distention Extremity: Normal ROM, No Tenderness Extremity: Bilateral: Atraumatic Neurological/Psych: Oriented x3 ED Course And Treatment - Laboratory Results Result Diagrams: 07/09/17 21:48 07/09/17 21:48 O2 Sat by Pulse Oximetry: 96 (RA) Pulse Ox Interpretation: Normal Medical Decision Making Medical Decision Making: Plan: Admit patient to psych. Disposition Counseled Patient/Family Regarding: Diagnosis - Disposition Disposition: HOSPITALIZED Disposition Time: 13:37 Condition: GOOD - Clinical Impression Clinical Impression: Single major depressive episode, severe, with psychosis, Heroin abuse - Scribe Statement The provider has reviewed the documentation as recorded by the Scribe (Maximilian Kumari) Provider Attestation: All medical record entries made by the Scribe were at my direction and personally dictated by me. I have reviewed the chart and agree that the record accurately reflects my personal performance of the history, physical exam, medical decision making, and the department course for this patient. I have also personally directed, reviewed, and agree with the discharge instructions and disposition.
[2017-07-09 22:02] LABS: SQUAMOUS EPITHIAL < 1 /hpf (0-5); URINE BILIRUBIN NEGATIVE (NEGATIVE); URINE BLOOD NEGATIVE (NEGATIVE); URINE CLARITY Clear (Clear); URINE COLOR Straw (YELLOW); URINE GLUCOSE (UA) NORMAL (Normal); URINE LEUKOCYTE ESTERASE NEG Leu/uL (Negative); URINE PROTEIN NEGATIVE (NEGATIVE); URINE UROBILINOGEN NORMAL mg/dL (0.2-1.0)
[2017-07-09 22:11] LABS: ALB/GLOB RATIO 1.2 (1.0-2.1); ALBUMIN 3.6 g/dL (3.5-5.0); ALT/SGPT 34 U/L (21-72); AST/SGOT 46 U/L (17-59); BLOOD UREA NITROGEN 19 mg/dL (9-20); CALCIUM 8.9 mg/dl (8.6-10.4); GFR AFRICAN-AMERICAN > 60; GFR NON-AFRICAN AMERICAN > 60
[2017-07-09 22:15] LABS: BARBITURATES, UR NEGATIVE (NEGATIVE); BENZODIAZEPINES, UR NEGATIVE (NEGATIVE); PHENCYCLIDINE, UR NEGATIVE (NEGATIVE)
[2017-07-09 22:16] LABS: OPIATES, UR POSITIVE (NEGATIVE)
--- NOTE | 2017-07-10 00:46 | PCM.BM ---
<Rolf Denise - Last Filed: 07/10/17 00:43> Treatment Plan Problems - Problems identified on initial assessmt Major Depressive D/O Date Initiated: 07/10/17 Time Initiated: 00:25 Assessment reference: NA Status: Active Substance Abuse Date Initiated: 07/10/17 Time Initiated: 00:25 Assessment reference: NA Status: Active Treatment assets and liabiliti Patient Assests: adapts well, cooperative, self-reliant, ADL independent, negotiates basic needs, cognitively intact Patient Liabilities: live alone, financial problems, poor support system, substance abuse - Milieu Protocol Maintain good personal hygiene: daily Encourage regular showers, daily Remind patient to perform daily oral care, daily Assist patient to perform ADL's Maintain personal safety: every shift Educate patient to report safety concerns to staff, every shift Monitor environment for contraband/sharps Medication safety: Monitor for expected outcome, potential side effects: every shift, Assess barriers to learning: every shift, Assess readiness for medication education: every shift <Reanna Michaels - Last Filed: 07/13/17 11:39> Family Contact Family involvement: Famliy/SO not involved - Goals for Treatment Patient goals for treatment: "I don't know." Discharge/Continuing Care - Education Needs Education Needs: Patient Medication, Patient Coping Skills, Patient Placement options, Patient Community resources - Discharge Discharge Criteria: Tolerates medication w/o severe side effects, Free of Suicidal thoughts, No longer exhibiting s/s of withdrawal, Reduction of target symptoms Discharge to:: [facility] - Treatment Team Participation Discussed with Family/SO: No Was Patient/Family/SO present at Treatment Team Meeting: Soheila
--- NOTE | 2017-07-10 11:12 | PCM.PSYCH ---
Initial Psychiatric Evaluation - Initial Psychiatric Evaluation Type of Admission: Voluntary Legal Status: Capacity Chief Complaint (in patient's own words): I was feeling depressed and suicidal History of Present Illness and Precipitating Events: Pt is a 56 year old male presented to the ED with complaints of severe depression and auditory hallucinations from a recently friend who is telling him to join the other side. The last time he heard these voices were yesterday but also claims he has being voices on and off for the past several years. Patient says he attempted to commit suicide today by taking 16 bags of heroin and thoughts of jumping in front of a truck. This is not the first time he had tried to commit suicide. Previously he tried over dosing on pills, cutting his wrists, and jumping off a bridge. Patient is currently having withdrawal symptoms of irritability, headaches, joint pains, nausea, and excessive sweating. Patient was lying in bed during the interview process and complained of inability to sleep. Patient also admits to decreased to energy and appetite. On a normal day, patient snorts 10 bags of heroin a day. 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 He lives at a senior living called [address] Patient has been admitted before for feeling depressed and suicidal. After his last admission he went to a rehab program in [place] called [facility]. He states he was let go by the program because they had nothing for me. He did not follow up with anyone after leaving the program. Past Medical History: Hiatal Hernia, Lumbar Herniated Disc, Left Shoulder Lipoma , Hypercholesterolemia, Post Traumatic Stress Disorder Past Surgical History: Denies Allergies: Denies Current Medications: Active Medications Generic Name Dose Route Start Last Admin Trade Name Freq PRN Reason Stop Dose Admin Pneumococcal Polyvalent Vaccine 0.5 ml 07/13/17 10:00 Pneumovax 23 Vaccine IM 07/13/17 10:01 .ONCE ONE Trazodone HCl 100 mg 07/10/17 00:36 07/10/17 00:49 Desyrel PO 100 mg HS PRN Administration Sleep Past Psychiatric History - Past Psychiatric History Previous Treatment History: Inpatient Pertinent Medical Hx (Current Medical&Sleep Prob, Allergies): Allergies Allergy/AdvReac Type Severity Reaction Status Date / Time chicken derived Allergy REDNESS Verified 07/09/17 21:19 turkey Allergy RASH Verified 07/09/17 21:19 Unobtainable 06/22/17 Review of Systems - Review of Systems All systems: reviewed and no additional remarkable complaints except - Psychiatric Psychiatric: Anxiety, Auditory Hallucinations, Irritability, Mood Swings, Suicidal Ideation Mental Status Examination - Personal Presentation Personal Presentation: Looks stated age - Affect Affect: Constricted, Depressed - Motor Activity Motor Activity: Calm - Reliability in Providing Information Reliability in Providing Information: Fair - Speech Speech: Organized - Mood Mood: Depressed, Anxious - Formal Thought Process Formal Thought Process: Hallucinations, Delusions - Hallucinations/Delusions Hallucinations: Auditory Delusions: Persecution - Obsessions/Compulsions Obsessions: No Compulsions: No - Cognitive Functions Orientation: Person, Place, Situation, Time Sensorium: Alert Attention/Concentration: Attentive Abstract Thinking: [place] Estimate of Intelligence: Below average Judgement: Imparied, as evidence by: Poor judgement, Imparied, as evidence by: Lack of insight into illness - Risk Risk: Suicidal, Withdrawal, Diminished functioning - Limitations Limitations: Living alone DSM 5 DX - DSM 5 DSM 5 Diagnosis: Major depressive disorder recurrent severe with psychotic features Opioid use disorder severe Opioid withdrawal - Recommended/Plan of Treatment Treatment Recommendations and Plan of Treatment: Major depressive disorder recurrent severe with psychotic features CBT Psychoeducation Supportive therapy, group therapy, individual therapy Trazodone 100 mg by mouth daily at bedtime Sertraline 50 mg PO Daily Opioid use disorder severe CBT Psychoeducation Supportive therapy, individual therapy Use [place] for abstinence Opioid withdrawal CBT Psychoeducation Supportive therapy, individual therapy Clonidine when necessary Methadone taper - Smoking Cessation Smoking Cessation Initiated: No
[2017-07-10] MEDS ORDERED: Aluminum Hydroxide/Magnesium Hydroxide Susp (30 mL) PO PRN (11:18)
[2017-07-10] MEDS ORDERED: Benzocaine/Menthol (Cepacol) Lozenge PO PRN (11:18)
--- NOTE | 2017-07-11 15:13 | PCM.PYCHPN ---
Psychiatric Progress Note - Psychiatric Progress Note Patient seen today, length of contact: 15 min Patient Chief Complaint: I was feeling depressed Problems Identified/Issues Discussed: Patient was seen and evaluated, chart reviewed and discussed with nurse. Patient reports feeling depressed, complaining of decreased sleep, energy, concentration, and appetite. Patient continue to have withdrawal symptoms including irritability, headaches, joint pains, nausea, and some sweating. Patient remains isolative and withdrawn. He is taking medications and denies side effects. Symptoms are improving but he needs more time for stabilization. Supportive therapy and psychoeducation were given. Medication Change: Yes Medical Record Reviewed: Yes Mental Status Examination - Cognitive Function Orientation: Person, Place, Situation, Time Memory: Intact Attention: WNL Concentration: Poor Association: WNL Fund of Knowledge: Poor - Mood Mood: Depressed, Anxious - Affect Affect: Constricted, Depressed - Speech Speech: Soft - Formal Thought Process Formal Thought Process: Hallucinations, Delusions - Suicidal Ideation Suicidal Ideation: No - Homicidal Ideation Homicidal Ideation: No Goal/Treatment Plan - Goal/Treatment Plan Need for Continued Stay: Severe depression anxiety, Severe functional impairment Progress Toward Problem(s) and Goals/Treatment Plan: Major depressive disorder recurrent severe with psychotic features CBT Psychoeducation Supportive therapy, group therapy, individual therapy Trazodone 100 mg by mouth daily at bedtime Sertraline 50 mg PO Daily Opioid use disorder severe CBT Psychoeducation Supportive therapy, individual therapy Use [place] for abstinence Opioid withdrawal CBT Psychoeducation Supportive therapy, individual therapy Clonidine when necessary Methadone taper - Smoking Cessation Smoking Cessation Initiated: No
--- NOTE | 2017-07-12 14:35 | PCM.PYCHPN ---
Psychiatric Progress Note - Psychiatric Progress Note Patient seen today, length of contact: 15 min Patient Chief Complaint: I m feeling depressed Problems Identified/Issues Discussed: Patient is a 56 year old male who presented to the ED with complaints of severe depression, auditory hallucinations from a recently friend who is telling him to join the other side, and substance abuse. Patient was seen and evaluated, chart reviewed and discussed with nurse. Patient reports feeling depressed, complaining of decreased sleep, energy, concentration, and appetite. Patient is not suicidal today and denies feeling guilty. Patient denies hearing voices today. Patient continue to have withdrawal symptoms including irritability, headaches, joint pains, nausea, and some sweating. Patient says his withdrawal symptoms have decreased since admission. Patient remains isolative and withdrawn. He is taking medications and denies side effects. Symptoms are improving but he needs more time for stabilization. Supportive therapy and psychoeducation were given. Medication Change: Yes Medical Record Reviewed: Yes Mental Status Examination - Cognitive Function Orientation: Person, Place, Situation, Time Memory: Intact Attention: WNL Concentration: Poor Association: WNL Fund of Knowledge: Poor - Mood Mood: Depressed, Anxious - Affect Affect: Constricted, Depressed - Speech Speech: Soft - Formal Thought Process Formal Thought Process: Delusions - Suicidal Ideation Suicidal Ideation: No - Homicidal Ideation Homicidal Ideation: No Goal/Treatment Plan - Goal/Treatment Plan Need for Continued Stay: Severe depression anxiety, Severe functional impairment Progress Toward Problem(s) and Goals/Treatment Plan: Major depressive disorder recurrent severe with psychotic features CBT Psychoeducation Supportive therapy, group therapy, individual therapy Trazodone 100 mg by mouth daily at bedtime Sertraline 50 mg PO Daily Neurontin 100 mg PO TID Opioid use disorder severe CBT Psychoeducation Supportive therapy, individual therapy Use [place] for abstinence Opioid withdrawal CBT Psychoeducation Supportive therapy, individual therapy Clonidine when necessary Methadone taper - Smoking Cessation Smoking Cessation Initiated: No
[2017-07-13] MEDS ORDERED: Pneumococcal 23-Valent Vaccine IM ONE (10:00)
--- NOTE | 2017-07-13 11:12 | PCM.PYCHPN ---
Psychiatric Progress Note - Psychiatric Progress Note Patient seen today, length of contact: 15 min Patient Chief Complaint: I m feeling depressed Problems Identified/Issues Discussed: Patient is a 56 year old male who presented to the ED with complaints of severe depression, auditory hallucinations from a recently friend who is telling him to join the other side, and substance abuse. Patient was seen and evaluated, chart reviewed and discussed with nurse. Patient reports felling depressed, complaining of decreased sleep, energy, concentration, and appetite. Patient is not suicidal today and denies feeling guilty. Patient denies hearing voices today. Patient states his withdrawal symptoms have subsided for the most part. Patient still complains of dizziness and nausea. Patient continues to have flat affect and remains isolative and withdrawn. Patient only leaves his room when he needs to eat, otherwise he avoids social interaction and does not participate in any group activities. He is taking medications and denies side effects. Symptoms are improving but he needs more time for stabilization. Supportive therapy and psychoeducation were given. Medication Change: Yes Medical Record Reviewed: Yes Mental Status Examination - Cognitive Function Orientation: Person, Place, Situation, Time Memory: Intact Attention: WNL Concentration: Poor Association: WNL Fund of Knowledge: Poor - Mood Mood: Depressed, Anxious - Affect Affect: Constricted, Depressed - Speech Speech: Soft - Formal Thought Process Formal Thought Process: Delusions - Suicidal Ideation Suicidal Ideation: No - Homicidal Ideation Homicidal Ideation: No Goal/Treatment Plan - Goal/Treatment Plan Need for Continued Stay: Severe depression anxiety, Severe functional impairment Progress Toward Problem(s) and Goals/Treatment Plan: Major depressive disorder recurrent severe with psychotic features CBT Psychoeducation Supportive therapy, group therapy, individual therapy Trazodone 100 mg by mouth daily at bedtime Sertraline 50 mg PO Daily Neurontin 100 mg PO TID Opioid use disorder severe CBT Psychoeducation Supportive therapy, individual therapy Use [place] for abstinence Opioid withdrawal CBT Psychoeducation Supportive therapy, individual therapy Clonidine when necessary Methadone taper
[2017-07-14 06:56] VITALS: RESP 20
[2017-07-17 06:15] VITALS: TEMP 98; O2SAT 97
[2017-07-17 08:43] VITALS: BP 109/68; PULSE 77
--- NOTE | 2017-07-17 10:12 | PCM.PYCHDC ---
Mental Status Examination - Mental Status Examination Orientation: Person, Place, Situation, Time Memory: Intact Mood: Neutral Affect: Constricted Speech: Soft Attention: WNL Concentration: WNL Association: WNL Fund of Knowledge: WNL Formal Thought Process: No Impairment Suicidal Ideation: No Current Homicidal Ideation?: No Discharge Summary - Discharge Note Consultations:: List each consultation separately and include: 1. Reason for request. 2. Findings. 3. Follow-up Summary of Hospital Course include:: 1. Description of specific treatment plan utilized for patients during their course of treatmen. 2. Summarize the time- course for resolution of acute symptoms and/or regressed behaviors. 3. Describe issues identified and worked on during hospitalization. 4. Describe medication utilized. 5. Describe medical problems identified and treated. 6. Reassessment of suicide risk Summary of Hospital Course: Pt is a 56 year old male presented to the ED with complaints of severe depression and auditory hallucinations from a recently friend who is telling him to join the other side. The last time he heard these voices were yesterday but also claims he has being voices on and off for the past several years. Patient says he attempted to commit suicide today by taking 16 bags of heroin and thoughts of jumping in front of a truck. This is not the first time he had tried to commit suicide. Previously he tried over dosing on pills, cutting his wrists, and jumping off a bridge. Patient is currently having withdrawal symptoms of irritability, headaches, joint pains, nausea, and excessive sweating. Patient was lying in bed during the interview process and complained of inability to sleep. Patient also admits to decreased to energy and appetite. On a normal day, patient snorts 10 bags of heroin a day. 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 He [facility] at a [facility]. Patient has been admitted before for feeling depressed and suicidal. After his last admission he went to a rehab program in [place] called [facility]. He states he was let go by the program because they had nothing for me. He did not follow up with anyone after leaving the program. Past Medical History: Hiatal Hernia, Lumbar Herniated Disc, Left Shoulder Lipoma , Hypercholesterolemia, Post Traumatic Stress Disorder Past Surgical History: Denies Allergies: Denies - Final Diagnosis (DSM 5) Condition upon Discharge: GOOD Disposition: HOME/ ROUTINE Follow-up Treatment Plan: Major depressive disorder recurrent severe with psychotic features CBT Psychoeducation Supportive therapy, group therapy, individual therapy Trazodone 100 mg by mouth daily at bedtime Sertraline 50 mg PO Daily Neurontin 100 mg PO TID Opioid use disorder severe CBT Psychoeducation Supportive therapy, individual therapy Use [place] for abstinence Opioid withdrawal CBT Psychoeducation Supportive therapy, individual therapy Clonidine when necessary Methadone taper Prescriptions/Medication Reconciliation: Gabapentin [Neurontin] 100 mg PO BID #60 cap Mirtazapine [Remeron] 30 mg PO HS #30 tab Sertraline [Zoloft] 100 mg PO DAILY #30 tab traZODone [Desyrel] 100 mg PO HS PRN #30 tab PRN Reason: Sleep
== END 2017-07-17 10:37 | disposition home or self-care (01) | DRG 430 ==
LOC: C.ER 21:02 → C.5E 23:06
PROVIDERS: ADMIT Psychiatry & Neurology Psychiatry; ATTEND Psychiatry & Neurology Psychiatry
PROC: GZHZZZZ Group Psychotherapy (ICD-10-PCS; principal; 2017-07-09)
PROC: HZ2ZZZZ Detoxification Services for Substance Abuse Treatment (ICD-10-PCS; 2017-07-09)
PROC: HZ52ZZZ Individual Psychotherapy for Substance Abuse Treatment, Cognitive-Behavioral (ICD-10-PCS; 2017-07-09)
PROC: HZ56ZZZ Individual Psychotherapy for Substance Abuse Treatment, Psychoeducation (ICD-10-PCS; 2017-07-09)
PROC: HZ42ZZZ Group Counseling for Substance Abuse Treatment, Cognitive-Behavioral (ICD-10-PCS; 2017-07-09)
PROC: HZ46ZZZ Group Counseling for Substance Abuse Treatment, Psychoeducation (ICD-10-PCS; 2017-07-09)
PROC: GZ58ZZZ Individual Psychotherapy, Cognitive-Behavioral (ICD-10-PCS; 2017-07-09)
PROC: GZ56ZZZ Individual Psychotherapy, Supportive (ICD-10-PCS; 2017-07-09)
PROC: HZ59ZZZ Individual Psychotherapy for Substance Abuse Treatment, Supportive (ICD-10-PCS; 2017-07-09)
DX: F33.3 Major depressive disorder, recurrent, severe with psychotic symptoms (principal); F11.23 Opioid dependence with withdrawal; R44.0 Auditory hallucinations; T40.1X2A Poisoning by heroin, intentional self-harm, initial encounter; E78.00 Pure hypercholesterolemia, unspecified; F43.10 Post-traumatic stress disorder, unspecified; R45.851 Suicidal ideations; F17.210 Nicotine dependence, cigarettes, uncomplicated

== ENCOUNTER 2017-09-23 20:29 | Emergency (ER) | payer MEDICAID, OTHER ==
[2017-09-23 20:29] VITALS: BMI 22.7
--- NOTE | 2017-09-23 20:54 | C.PDOC ---
History Of Present Illness 56 year old male with PMHx of depression presents to the ED for evaluation of suicidal ideations. Patient states he has not been taking his medications for the past 2 weeks, he usually takes prozac, seroquel and klonopin. Patient reports for the past couple of days he has been thinking about jumping off a bridge. Patient states he tried before but the Police stopped him and also tried overdosing on heroin but woke up in the ED. Patient states he is homeless , can't do this anymore and needs to get his life back together. Patient denies HI, hallucinations, CP, SOB. Time Seen by Provider: 09/23/17 20:43 Chief Complaint (Nursing): Psychiatric Evaluation History Per: Patient History/Exam Limitations: no limitations Onset/Duration Of Symptoms: Days Current Symptoms Are (Timing): Still Present Suicide/Self Injury Attempted (Context): Other (Jumping of a bridge) Modifying Factor(s): None Associated Symptoms: Depression, Suicidal Thoughts, Suicidal Plan Involuntary Hold By: None Recent travel outside of the [place]: No Additional History Per: Patient Past Medical History Reviewed: Historical Data, Nursing Documentation, Vital Signs Vital Signs: Last Vital Signs Temp 98.7 F 09/23/17 20:33 Pulse 68 09/23/17 20:33 Resp 18 09/23/17 20:33 BP 125/74 09/23/17 20:33 Pulse Ox 98 09/23/17 20:55 - Medical History PMH: Anxiety, Bipolar Disorder, Depression, Gastritis, Hiatal Hernia, Hypercholesterolemia, Hyperlipidemia, Post Traumatic Stress Disorder, Schizophrenia Denies: Asthma (Denied), Diabetes, Hepatitis, HIV, HTN, Chronic Kidney Disease, Seizures, Sexually Transmitted Disease Surgical History: No Surg Hx - [facility] Procedures DETOXIFICATION SERVICES FOR SUBSTANCE ABUSE TREATMENT (07/09/17) GROUP SALVAGE DIVER FOR SUBSTANCE ABUSE TREATMENT, PSYCHOEDUCATION (07/09/17) GROUP SALVAGE DIVER FOR SUBSTANCE ABUSE, COGNITIVE BEHAVIORAL (07/09/17) GROUP PSYCHOTHERAPY (09/04/17) INDIV PSYCHOTHERAPY FOR SUBSTANCE ABUSE TREATMENT, SUPPORT (07/09/17) INDIV PSYCHOTHERAPY FOR SUBSTANCE ABUSE, COGNITIV BEHAVIORAL (09/04/17) INDIV PSYCHOTHERAPY FOR SUBSTANCE ABUSE, MOTIVATION ENHANCE (02/15/17) INDIV PSYCHOTHERAPY FOR SUBSTANCE ABUSE, PSYCHOEDUCATION (07/09/17) INDIVIDUAL PSYCHOTHERAPY, COGNITIVE-BEHAVIORAL (09/04/17) INDIVIDUAL PSYCHOTHERAPY, SUPPORTIVE (07/09/17) INTRODUCTION OF SERUM/TOX/VACCINE INTO MUSCLE, PERC APPROACH (09/04/17) MEDICATION MANAGEMENT (05/02/17) Family History: States: CA, CAD, Diabetes - Social History Hx Tobacco Use: Yes (1 pack a day for the last 40 years) Hx Alcohol Use: Yes (age 13) Hx Substance Use: Yes (age 13) - Immunization History Hx Tetanus Toxoid Vaccination: No Hx Influenza Vaccination: No Hx Pneumococcal Vaccination: No Review Of Systems Constitutional: Negative for: Fever, Chills Cardiovascular: Negative for: Chest Pain Respiratory: Negative for: Cough, Shortness of Breath Gastrointestinal: Negative for: Nausea, Vomiting, Abdominal Pain Skin: Negative for: Rash Psych: Positive for: Depression, Suicidal ideation Physical Exam - Physical Exam Appears: Non-toxic, No Acute Distress Skin: Normal Color, Warm, Dry Head: Atraumatic, Normacephalic Eye(s): bilateral: Normal Inspection Oral Mucosa: Moist Neck: Normal ROM, Supple Chest: Symmetrical Cardiovascular: Rhythm Regular Respiratory: Normal Breath Sounds, No Rales, No Rhonchi, No Wheezing Gastrointestinal/Abdominal: Soft, No Tenderness, No Guarding, No Rebound Extremity: Normal ROM, No Tenderness, No Swelling Neurological/Psych: Oriented x3, Normal Speech, Normal Cognition Gait: Steady ED Course And Treatment - Laboratory Results Result Diagrams: 09/23/17 21:01 09/23/17 21:01 Lab Interpretation: No Acute Changes O2 Sat by Pulse Oximetry: 98 (ON RA) Pulse Ox Interpretation: Normal Progress Note: Patient is medically cleared for psychiatric admission. Medical Decision Making Medical Decision Making: Impression: suicidal ideation Plan: * Labs * UA * 1:1 Obs Disposition - Disposition Disposition Time: 23:59 Condition: STABLE Forms: [facility] (Belarusian) - Clinical Impression Clinical Impression: Depression - Scribe Statement The provider has reviewed the documentation as recorded by the Scribe Luis Miguel Fleming All medical record entries made by the Scribe were at my direction and personally dictated by me. I have reviewed the chart and agree that the record accurately reflects my personal performance of the history, physical exam, medical decision making, and the department course for this patient. I have also personally directed, reviewed, and agree with the discharge instructions and disposition. Physician Patient Turnover Patient Signed Over To: Kwaku Beltran Handoff Comments: pending psychiatric disposition
[2017-09-23 21:10] LABS: BASO # 0.1 K/uL (0.0-0.2); BASO % 0.9 % (0.0-2.0); EOS # 0.2 K/uL (0.0-0.7); EOS % 3.5 % (0.0-4.0); LYMPH # 2.1 K/uL (1.0-4.3); LYMPH % 29.1 % (20.0-40.0); MEAN CELL VOLUME 86.5 fL (80.0-94.0); MEAN CORPUSCULAR HEMOGLOBIN 28.1 pg (27.0-31.0); MEAN CORPUSCULAR HGB CONC 32.5 g/dL (33.0-37.0); MEAN PLATELET VOLUME 7.4 fL (7.2-11.7); MONO # 0.6 K/uL (0.0-0.8); MONO % 8.6 % (0.0-10.0); NEUT # 4.1 K/uL (1.8-7.0); NEUT % 57.9 % (50.0-75.0); NRBC % 0.1 % (0.0-2.0); RBC 4.41 Mil/uL (4.40-5.90); RED CELL DISTRIBUTION WIDTH 15.5 % (11.5-14.5); WHITE BLOOD COUNT 7.2 K/uL (4.8-10.8)
[2017-09-23 21:13] LABS: HEMOGLOBIN 12.4 g/dL (12.0-18.0)
[2017-09-23 21:23] LABS: ALB/GLOB RATIO 1.6 (1.0-2.1); ALBUMIN 4.1 g/dL (3.5-5.0); ALT/SGPT 18 U/L (21-72); AST/SGOT 14 U/L (17-59); BLOOD UREA NITROGEN 12 mg/dL (9-20); CALCIUM 8.7 mg/dl (8.6-10.4); GFR AFRICAN-AMERICAN > 60; GFR NON-AFRICAN AMERICAN > 60
[2017-09-23 22:09] LABS: SQUAMOUS EPITHIAL < 1 /hpf (0-5); URINE BACTERIA RARE (<OCC); URINE BILIRUBIN NEGATIVE (NEGATIVE); URINE BLOOD NEGATIVE (NEGATIVE); URINE CLARITY Clear (Clear); URINE COLOR Yellow (YELLOW); URINE GLUCOSE (UA) NORMAL (Normal); URINE LEUKOCYTE ESTERASE NEG Leu/uL (Negative); URINE PROTEIN NEGATIVE (NEGATIVE); URINE UROBILINOGEN NORMAL mg/dL (0.2-1.0)
[2017-09-23 22:31] LABS: BARBITURATES, UR NEGATIVE (NEGATIVE); BENZODIAZEPINES, UR NEGATIVE (NEGATIVE); PHENCYCLIDINE, UR NEGATIVE (NEGATIVE)
[2017-09-23 23:08] LABS: OPIATES, UR POSITIVE (NEGATIVE)
[2017-09-24 00:07] VITALS: PULSE 60
[2017-09-24 03:18] VITALS: BP 135/67; RESP 18; TEMP 98.5; O2SAT 98
== END 2017-09-24 03:37 | disposition home or self-care (01) ==
LOC: SUPCPDRO 20:29 → C.ER 20:29
DX: F32.9 Major depressive disorder, single episode, unspecified (principal); F11.10 Opioid abuse, uncomplicated; F20.9 Schizophrenia, unspecified; F43.10 Post-traumatic stress disorder, unspecified